=== PATIENT | male | born 1965 | race Caucasian/White ===

== ENCOUNTER 2016-07-05 01:49 | Observation (INO) | payer OTHER ==
[~2016-07-05] VITALS: Ht 185.4 cm; Wt 125.2 kg
[~2016-07-05 01:49] MED LIST: ADDERALL XR 2020 MG PO; ADDERALL XR30 MG PO; ADDERALL20 MG PO; ADULT LOW DOSE81 M1 PO; ADVAIR 250/501 DISK IH; ADVAIR 500/501 DISK IH; ADVAIR HFA120 INHAL1 IH; AMBIEN CR12.5 MG PO; AMBIEN10 MG PO; AMOX TR-K CLV1 EAC4 PO; AMPHETAMINE SAL20 MG PO; ASPIR 8181 M1 PO; ASPIRIN E.C.81 M1 PO; ASPIRIN81 M1 PO; ATORVASTATIN CA80 MG PO; AUGMENTIN875 MG PO; Adderall PO; Advair HFA 230/21 IH; Aspirin E.C. PO; BACTRIM,SEPT1 TABLET PO; CIPRO500 MG PO; CIPROFLOXACIN500 M1 PO; COUMADIN,JANTOVE4 MG PO; COUMADIN,JANTOVE6 MG PO; COUMADIN10 MG PO; COUMADIN5 MG PO; COUMADIN7.5 MG PO; CRESTOR40 MG PO; CYMBALTA PO; CYMBALTA30 MG PO; CYMBALTA60 MG PO; Ceftin PO; Coumadin,Jantoven PO; DIAZEPAM10 MG PO; DICYCLOMINE HCL20 MG PO; DILAUDID2 MG PO; DULOXETINE HCL60 MG PO; ECOTRIN81 M1 PO; EFFEXOR XR150 MG PO; ERGOCALCIF50000 UNIT PO; ESKALITH PO; Ecotrin PO; FAMOTIDINE40 MG PO; FLAGYL500 MG PO; FOLIC ACID1 MG PO; Flonase BOTH NARES; HOME OXYGEN; HUMALOG100 UNIT/1 SC; HUMALOG100 UNITS/ SC; Habitrol,Nicoderm CQ TD; INVEGA9 MG PO; KEPPRA1000 MG PO; LAMISIL250 MG PO; LANTUS 10100 UNITS/ SC; LANTUS 3 M100 UNITS/ SC; LANTUS 3 M100 UNITS1 SC; LANTUS100 UNIT/1 SQ; LEVAQUIN750 MG PO; LEVEMIR100 UNIT/2 SC; LIPITOR80 MG PO; LISINOPRIL5 MG PO; LITHIUM CARBON150 MG PO; LITHIUM CARBON450 MG PO; LOPRESSOR100 M1 PO; LOPRESSOR25 MG PO; LOPRESSOR50 MG PO; Lopressor PO; METRONIDAZOLE500 MG PO; NASONEX17 GM; NORCO 5/3251 TABLET PO; NOVOLIN 70100 UNIT/1 SQ; NOVOLIN,HU100 UNITS1 SC; NOVOLOG 10100 UNITS/ SC; NOVOLOG MI100 UNIT/M SC; NOVOLOG PE100 UNITS/ SC; OPANA ER40 MG PO; OXYCODONE HCL15 MG PO; OXYCODONE HCL30 MG PO; OXYCODONE15 MG PO; OXYCODONE30 MG PO; OXYCODONE5 MG PO; OXYCONTIN PO; OXYCONTIN15 MG PO; OXYCONTIN40 MG PO; OXYMORPHONE HCL30 MG PO; OxyCODONE PO; OxyCONTIN PO; PANTOPRAZOLE SO40 MG PO; PEPCID40 MG PO; PRADAXA150 MG PO; PREDNISONE20 MG PO; PROAIR HFA8.5 GM IH; PROTONIX40 MG PO; PROVENTIL,2.5 MG/0.5 IH; PROVENTIL,2.5 MG/3 M IH; PROVENTIL,200 INHALA IH; Pradaxa PO; Protonix PO; Proventil,Ventolin H IH; REGLAN5 MG PO; ROXICODONE15 MG PO; ROXICODONE5 MG PO; Remove Nicotine Patc TD; SERTRALINE HCL100 MG PO; SPIRIVA1 INHALATI IH; TOPROL XL100 MG PO; TOPROL XL50 MG PO; TRAMADOL HCL50 MG PO; Tylenol Regular Stre PO; VALIUM10 MG PO; VALIUM5 MG PO; VALTREX50 MG/ML PO; VENTOLIN HFA18 GM IH; VIBRAMYCIN100 M2 PO; VIBRAMYCIN100 MG PO; VITAMIN D10000 UNIT PO; VITAMIN D250000 UNIT PO; Valium PO; WARFARIN SODIU7.5 MG PO; WARFARIN SODIUM10 MG PO; WARFARIN SODIUM5 MG PO; ZESTRIL,PRINIVI10 M1 PO; ZESTRIL,PRINIVI10 MG PO; ZITHROMAX Z-PA250 MG PO; ZOFRAN ODT4 MG PO; ZOFRAN4 MG PO; ZOFRAN8 MG PO; ZOLOFT100 M1 PO; ZOLOFT100 MG PO; Zithromax PO; Zoloft PO; crestor PO; oxyCODONE PO; predniSONE PO
[2016-07-05 02:10] LABS: POINT-OF-CARE METER ID UU13113778
[2016-07-05 02:39] LABS: BASOPHIL COUNT 0.1 K/uL (0-0.1); EOSINOPHIL (%) 4.3 % (0-5); EOSINOPHIL COUNT 0.5 K/uL (0-0.3); HEMATOCRIT 40.8 % (38.0-50.0); IMMATURE GRANULOCYTE (%) 0.2 % (0.0-0.7); IMMATURE GRANULOCYTE COUNT 0.2 K/uL; LYMPHOCYTE COUNT 2.6 K/uL (1.0-2.8); MCH 32.3 PG (29.0-34.0); MCHC 35.8 G/DL (30.0-36.0); MCV 90.3 FL (86-99); MEAN PLAT.VOLUME 9.6 uM^3 (9.0-12.4); MONOCYTE (%) 8.5 % (3-12); MONOCYTE COUNT 0.9 K/uL (0-0.8); NEUTROPHIL (%) 61.4 % (45-76); NEUTROPHIL COUNT 6.4 K/uL (1.8-6.4); PLATELET COUNT 251 K/uL (156-360); RBC DIS.WIDTH-CV 13.6 % (11.8-14.6); RBC DIS.WIDTH-SD 43.4 % (39-53); RED BLOOD COUNT 4.52 M/uL (4.00-5.50); WHITE BLOOD COUNT 10.4 K/uL (4.1-10.2)
[2016-07-05 02:48] LABS: CHLORIDE 102 mEq/L (99-109); SODIUM 135 mEq/L (136-147)
[2016-07-05 02:50] LABS: GLUCOSE 314 mg/dL (70-99)
[2016-07-05 02:51] LABS: ANION GAP 10 MEQ/L (2-14)
[2016-07-05 02:52] LABS: TOTAL BILIRUBIN 0.7 mg/dL (0.0-1.0)
[2016-07-05 02:53] LABS: SERUM ETHYL ALCOHOL < 10 mg/dL
[2016-07-05 02:54] LABS: ALKALINE PHOSPHATASE 63 IU/L (3-129); GFR ESTIMATE (CALCULATED) > 59 mL/min/
[2016-07-05 02:55] LABS: UREA NITROGEN (BUN) 5 mg/dL (9-23)
[2016-07-05 02:57] LABS: LIPASE 8 U/L (1.0-51.0)
[2016-07-05 02:59] LABS: TROP-I INTERPRETATION NEGATIVE; TROPONIN-I < 0.01 ng/mL (0.0-0.30)
[2016-07-05 03:03] LABS: CK-MB 6.4 ng/mL (0.0-4.9)
[2016-07-05 03:14] LABS: PTT 27.3 (25-32)
[2016-07-05 03:22] LABS: PROTHROMBIN TIME 10.2 (9.2-11.2)
[2016-07-05 03:41] LABS: CREATINE KINASE 634 IU/L (1-294); TOTAL CK 634 IU/L (1-294)
[2016-07-05 04:13] LABS: D-DIMER ELISA 0.21 mg/L FEU (< 0.57)
[2016-07-05 06:32] LABS: AMPHETAMINE NEGATIVE (500 ng/mL); BARBITURATES NEGATIVE (200 ng/mL); BENZODIAZEPINES PRESUMPTIVE POSITIVE (150 ng/mL); COCAINE NEGATIVE (150 ng/mL); METHADONE NEGATIVE (200 ng/mL); METHAMPHETAMINE NEGATIVE (500 ng/mL); OPIATES (MORPHINE) NEGATIVE (100 ng/mL); OXYCODONE PRESUMPTIVE POSITIVE (100 ng/mL); PHENCYCLIDINE NEGATIVE (25 ng/mL); PROPOXYPHENE NEGATIVE (300 ng/mL); THC CANNABINOIDS NEGATIVE (50 ng/mL); TRICYCLIC ANTIDEPRESSANTS PRESUMPTIVE POSITIVE (300 ng/mL)
[2016-07-05 06:33] LABS: ADD MEDTOX COMMENT Y; INTERNAL CONTROLS VALID? YES
[2016-07-05 06:43] LABS: ADD MIUA? NO; BILIRUBIN NEGATIVE; BLOOD NEGATIVE; COLOR YELLOW ((YELLOW)); GLUCOSE (STRIP) 500; KETONES NEGATIVE; LEUKOCYTES NEGATIVE; NITRITE NEGATIVE; PROTEIN (STRIP) TRACE; SPECIFIC GRAVITY 1.008 (1.000-1.030); UCUL ADDED? NO; UROBILINOGEN 0.2 MG/DL (0.2-1.0)
[2016-07-05 06:54] LABS: SALICYLATE < 3.0 MG/DL (15-30)
[2016-07-05] MEDS ORDERED: METOPROLOL TAR100 MG PO (07:57)
[2016-07-05 08:00] LABS: BENZODIAZEPINES, URINE SCREEN POSITIVE (200 ng/mL)
[2016-07-05 08:04] LABS: POINT-OF-CARE METER ID UU14100415
[2016-07-05 09:26] VITALS: BP 134/81
[2016-07-05 14:07] LABS: TROP-I INTERPRETATION NEGATIVE; TROPONIN-I < 0.01 ng/mL (0.0-0.30)
[2016-07-05 16:24] VITALS: BP 148/63
[2016-07-05 16:40] LABS: POINT-OF-CARE METER ID UU13113725
[2016-07-05 18:06] LABS: TROP-I INTERPRETATION NEGATIVE; TROPONIN-I 0.01 ng/mL (0.0-0.30)
[2016-07-05 19:31] VITALS: BP 125/76
[2016-07-05 20:58] LABS: POINT-OF-CARE METER ID UU13113725
[2016-07-05 22:53] VITALS: BP 130/77
[2016-07-06 03:24] VITALS: BP 131/71
[2016-07-06 06:10] LABS: POINT-OF-CARE METER ID UU13113725
[2016-07-06 06:48] LABS: HEMATOCRIT 40.7 % (38.0-50.0); MCH 31.1 PG (29.0-34.0); MCHC 33.4 G/DL (30.0-36.0); MCV 93.1 FL (86-99); MEAN PLAT.VOLUME 10.1 uM^3 (9.0-12.4); PLATELET COUNT 255 K/uL (156-360); RBC DIS.WIDTH-SD 47.3 % (39-53); RED BLOOD COUNT 4.37 M/uL (4.00-5.50); WHITE BLOOD COUNT 12.4 K/uL (4.1-10.2)
[2016-07-06 07:17] LABS: ANION GAP 7 MEQ/L (2-14); CHLORIDE 102 MEQ/L (99-109); CREATINE KINASE 127 IU/L (1-294); GFR ESTIMATE (CALCULATED) > 59 mL/min/; POTASSIUM 4.6 MEQ/L (3.7-5.4); SAMPLE HEMOLYSIS CHECK 0; SAMPLE ICTERIC CHECK 0; SAMPLE LIPEMIA CHECK 0; SODIUM 137 MEQ/L (136-147); UREA NITROGEN (BUN) 7 mg/dL (9-23)
[2016-07-06 07:19] LABS: ALKALINE PHOSPHATASE 53 IU/L (3-129); ANION GAP 8 MEQ/L (2-14); CHLORIDE 102 MEQ/L (99-109); GFR ESTIMATE (CALCULATED) > 59 mL/min/; POTASSIUM 4.6 MEQ/L (3.7-5.4); SAMPLE HEMOLYSIS CHECK 0; SAMPLE ICTERIC CHECK 0; SAMPLE LIPEMIA CHECK 0; SODIUM 138 MEQ/L (136-147); TOTAL BILIRUBIN 0.5 MG/DL (0.0-1.0); UREA NITROGEN (BUN) 7 mg/dL (9-23)
[2016-07-06 07:28] LABS: GLUCOSE 150 mg/dL (70-99); GLUCOSE 151 mg/dL (70-99)
[2016-07-06 08:00] VITALS: BP 139/76
[2016-07-06] MEDS ORDERED: OXYCODONE HCL30 MG PO (14:47)
[2016-07-06 15:51] VITALS: BP 144/82
[2016-07-06 19:49] VITALS: BP 134/83
[2016-07-06 22:39] VITALS: BP 136/84
[2016-07-07 02:19] VITALS: BP 142/81
[2016-07-07 07:43] VITALS: BP 126/83
[2016-07-07 12:12] VITALS: BP 129/95
== END 2016-07-07 17:35 ==
LOC: EME 01:49 → EDOF 06:28 → 5EAST 06:28
PROVIDERS: Emergency Medicine; Hospitalist; Internal Medicine
DX: R41.82 Altered mental status, unspecified (principal); R45.851 Suicidal ideations; G89.29 Other chronic pain; M47.816 Spondylosis without myelopathy or radiculopathy, lumbar region; M54.5 Low back pain; F11.20 Opioid dependence, uncomplicated; F32.9 Major depressive disorder, single episode, unspecified; F41.9 Anxiety disorder, unspecified; R51 Headache; Z91.19 Patient's noncompliance with other medical treatment and regimen; E11.9 Type 2 diabetes mellitus without complications; I10 Essential (primary) hypertension; E66.01 Morbid (severe) obesity due to excess calories; I25.10 Atherosclerotic heart disease of native coronary artery without angina pectoris; Z98.61 Coronary angioplasty status; J44.9 Chronic obstructive pulmonary disease, unspecified; Z86.69 Personal history of other diseases of the nervous system and sense organs; Z86.19 Personal history of other infectious and parasitic diseases; Z87.891 Personal history of nicotine dependence; Z86.718 Personal history of other venous thrombosis and embolism; Z79.01 Long term (current) use of anticoagulants; Z91.041 Radiographic dye allergy status
CPT/HCPCS: 70450; 71010; 80048; 80053; 80178; 81003; 82140; 82550; 82553; 82948; 83690; 84484; 84999; 85025; 85027; 85379; 85610; 85730; 93005; 99281; 99285; G0378; G0480; G8987 GO CJ; G8988 GO CH; J1630; J1650; J1815; J1885; J2060; J2405; J7030

== ENCOUNTER 2016-07-07 17:31 | Inpatient (IN) | payer OTHER ==
[~2016-07-07] VITALS: Ht 185.4 cm; Wt 125.2 kg
[~2016-07-07 17:31] MED LIST changes: +METOPROLOL TAR100 MG PO
[2016-07-07 17:41] VITALS: BP 133/87
[2016-07-07 18:27] VITALS: BP 133/87
[2016-07-07 19:57] LABS: INTER. NORMALIZED RATIO 1.1; PROTHROMBIN TIME 11.6 (9.2-11.2)
[2016-07-07 21:44] LABS: POINT-OF-CARE METER ID UU13113830; POINT-OF-CARE USER ID ENVTLS63
[2016-07-08 06:31] LABS: POINT-OF-CARE METER ID UU13113830; POINT-OF-CARE USER ID BHSMEW
[2016-07-08 12:41] LABS: POINT-OF-CARE METER ID UU13113830
[2016-07-08 16:16] VITALS: BP 120/69
[2016-07-08 17:46] LABS: INTER. NORMALIZED RATIO 1.4; PROTHROMBIN TIME 14.1 (9.2-11.2)
[2016-07-08 21:14] LABS: POINT-OF-CARE METER ID UU13113830
[2016-07-09 06:43] LABS: POINT-OF-CARE METER ID UU13113830
[2016-07-09 07:52] VITALS: BP 103/62
[2016-07-09 09:24] LABS: INTER. NORMALIZED RATIO 1.5; PROTHROMBIN TIME 15.7 (9.2-11.2)
[2016-07-09] MEDS ORDERED: VENLAFAXINE HCL75 M3 PO (10:50)
[2016-07-09 12:13] LABS: POINT-OF-CARE METER ID UU13113830
[2016-07-09] MEDS ORDERED: OXYCODONE HCL5 MG PO (15:10)
[2016-07-09] MEDS ORDERED: OXYCONTIN30 MG PO (15:10)
== END 2016-07-09 15:50 | disposition home or self-care (01) | DRG 881 ==
LOC: 1WEST 17:31
PROVIDERS: Nurse Practitioner Family; Psychiatry & Neurology Psychiatry
DX: F32.9 Major depressive disorder, single episode, unspecified (principal); G89.29 Other chronic pain; F60.9 Personality disorder, unspecified; E11.9 Type 2 diabetes mellitus without complications; I10 Essential (primary) hypertension; E78.5 Hyperlipidemia, unspecified; G40.909 Epilepsy, unspecified, not intractable, without status epilepticus; J44.9 Chronic obstructive pulmonary disease, unspecified; Z91.041 Radiographic dye allergy status; Z91.013 Allergy to seafood; Z88.6 Allergy status to analgesic agent
CPT/HCPCS: 80178; 82948; 85610; 97150 GO; 97165 GO; J1815; Q0177

== ENCOUNTER 2016-08-30 07:59 | Observation (INO) | payer OTHER ==
[~2016-08-30] VITALS: Ht 185.4 cm; Wt 123.3 kg
[~2016-08-30 07:59] MED LIST changes: +OXYCODONE HCL5 MG PO; +OXYCONTIN30 MG PO; +VENLAFAXINE HCL75 M3 PO
[2016-08-30 09:04] LABS: BASOPHIL COUNT 0.1 K/uL (0-0.1); EOSINOPHIL (%) 1.6 % (0-5); EOSINOPHIL COUNT 0.2 K/uL (0-0.3); IMMATURE GRANULOCYTE (%) 0.3 % (0.0-0.7); IMMATURE GRANULOCYTE COUNT 0.1 K/uL; INSTRUMENT ABS NEUTROPHIL CT 9.9 K/uL; LYMPHOCYTE COUNT 3.4 K/uL (1.0-2.8); MCH 31.9 PG (29.0-34.0); MCHC 35.1 G/DL (30.0-36.0); MCV 90.9 FL (86-99); MEAN PLAT.VOLUME 9.7 uM^3 (9.0-12.4); MONOCYTE (%) 6.4 % (3-12); MONOCYTE COUNT 0.9 K/uL (0-0.8); NEUTROPHIL (%) 67.9 % (45-76); NEUTROPHIL COUNT 9.9 K/uL (1.8-6.4); PLATELET COUNT 289 K/uL (156-360); RED BLOOD COUNT 4.95 M/uL (4.00-5.50); WHITE BLOOD COUNT 14.6 K/uL (4.1-10.2)
[2016-08-30 09:13] LABS: PROTHROMBIN TIME 9.8 (9.2-11.2); PTT 26.4 (25-32)
[2016-08-30 09:15] LABS: CHLORIDE 94 mEq/L (99-109); POTASSIUM 3.8 mEq/L (3.7-5.4); SODIUM 131 mEq/L (136-147)
[2016-08-30 09:16] LABS: MAGNESIUM 1.7 mg/dL (1.3-2.7)
[2016-08-30 09:19] LABS: ANION GAP 17 MEQ/L (2-14)
[2016-08-30 09:21] LABS: GFR ESTIMATE (CALCULATED) > 59 mL/min/
[2016-08-30 09:22] LABS: UREA NITROGEN (BUN) 4 mg/dL (9-23)
[2016-08-30 09:26] LABS: TROP-I INTERPRETATION NEGATIVE; TROPONIN-I < 0.01 ng/mL (0.0-0.30)
[2016-08-30 09:30] LABS: GLUCOSE 696 mg/dL (70-99)
[2016-08-30 11:25] LABS: CARBON DIOXIDE (BICARBONATE) 28.7 MEQ/L (20-31)
[2016-08-30 12:02] LABS: POINT-OF-CARE METER ID UU14100415
[2016-08-30 12:29] LABS: ANION GAP 12 MEQ/L (2-14); CHLORIDE 100 MEQ/L (99-109); POTASSIUM 3.2 MEQ/L (3.7-5.4); SAMPLE HEMOLYSIS CHECK 0; SAMPLE ICTERIC CHECK 0; SAMPLE LIPEMIA CHECK 0; SODIUM 136 MEQ/L (136-147)
[2016-08-30 12:34] LABS: GFR ESTIMATE (CALCULATED) > 59 mL/min/; UREA NITROGEN (BUN) 4 mg/dL (9-23)
[2016-08-30 12:37] LABS: GLUCOSE 343 mg/dL (70-99)
[2016-08-30] MEDS ORDERED: FENTANYL1 EAC2 TD (12:54)
[2016-08-30] MEDS ORDERED: OXYMORPHONE HCL30 MG PO (12:54)
[2016-08-30] MEDS ORDERED: LANTUS 3 M100 UNITS1 SC (13:19)
[2016-08-30] MEDS ORDERED: VALIUM10 MG PO (13:26)
[2016-08-30] MEDS ORDERED: SEROQUEL200 MG PO (13:26)
[2016-08-30] MEDS ORDERED: ROXICODONE15 MG PO (13:27)
[2016-08-30] MEDS ORDERED: NICODERM CQ1 EAC2 TD (13:28)
[2016-08-30 14:19] LABS: Estimated Average Glucose 272 mg/dL (70-123)
[2016-08-30 14:30] LABS: HEMOGLOBIN A1c (GLYCOHEMOGLOB) 11.1 % HGB (Below 5.7)
[2016-08-30 15:16] VITALS: BP 131/77
[2016-08-30 15:23] LABS: TROP-I INTERPRETATION NEGATIVE; TROPONIN-I 0.02 ng/mL (0.0-0.30)
[2016-08-30 20:00] VITALS: BP 152/90
[2016-08-30 20:54] LABS: TROP-I INTERPRETATION NEGATIVE; TROPONIN-I 0.01 ng/mL (0.0-0.30)
[2016-08-30 21:54] LABS: POINT-OF-CARE METER ID UU14162513
[2016-08-30 23:46] VITALS: BP 110/59
[2016-08-31 04:29] VITALS: BP 98/56
[2016-08-31 07:36] LABS: PROTHROMBIN TIME 10.4 (9.2-11.2)
[2016-08-31 07:38] VITALS: BP 100/64
[2016-08-31 08:04] LABS: POINT-OF-CARE METER ID UU14162513
[2016-08-31 08:19] LABS: ANION GAP 5 MEQ/L (2-14); CHLORIDE 105 MEQ/L (99-109); GFR ESTIMATE (CALCULATED) > 59 mL/min/; GLUCOSE 198 mg/dL (70-99); SAMPLE HEMOLYSIS CHECK 0; SAMPLE ICTERIC CHECK 0; SAMPLE LIPEMIA CHECK 0; SODIUM 140 MEQ/L (136-147); UREA NITROGEN (BUN) 8 mg/dL (9-23)
[2016-08-31 08:23] LABS: POTASSIUM 4.5 MEQ/L (3.7-5.4)
[2016-08-31 08:26] LABS: BASOPHIL COUNT 0.1 K/uL (0-0.1); EOSINOPHIL (%) 2.6 % (0-5); EOSINOPHIL COUNT 0.3 K/uL (0-0.3); IMMATURE GRANULOCYTE (%) 0.3 % (0.0-0.7); INSTRUMENT ABS NEUTROPHIL CT 5.5 K/uL; LYMPHOCYTE COUNT 3.4 K/uL (1.0-2.8); MCH 31.5 PG (29.0-34.0); MCHC 34.1 G/DL (30.0-36.0); MCV 92.1 FL (86-99); MEAN PLAT.VOLUME 9.9 uM^3 (9.0-12.4); MONOCYTE (%) 7.1 % (3-12); MONOCYTE COUNT 0.7 K/uL (0-0.8); NEUTROPHIL COUNT 5.5 K/uL (1.8-6.4); PLATELET COUNT 243 K/uL (156-360); RBC DIS.WIDTH-CV 13.4 % (11.8-14.6); RBC DIS.WIDTH-SD 45.1 % (39-53); RED BLOOD COUNT 4.45 M/uL (4.00-5.50)
[2016-08-31] MEDS ORDERED: LOVENOX120 MG/0.8 SC (10:59)
[2016-08-31] MEDS ORDERED: COUMADIN5 MG PO (10:59)
[2016-08-31 12:02] VITALS: BP 103/74
[2016-08-31 12:43] LABS: POINT-OF-CARE METER ID UU14162513
[2016-08-31] MEDS ORDERED: ELIQUIS5 MG PO (13:43)
== END 2016-08-31 16:07 | disposition home or self-care (01) ==
LOC: EME 07:59 → EDOF 12:41 → 5WEST 12:41 → EDOF 12:41 → 5WEST 14:37
PROVIDERS: Emergency Medicine; Hospitalist; Internal Medicine; Nurse Practitioner Family
DX: I26.99 Other pulmonary embolism without acute cor pulmonale (principal); E87.6 Hypokalemia; Z91.19 Patient's noncompliance with other medical treatment and regimen; E11.65 Type 2 diabetes mellitus with hyperglycemia; J44.9 Chronic obstructive pulmonary disease, unspecified; I48.0 Paroxysmal atrial fibrillation; I25.10 Atherosclerotic heart disease of native coronary artery without angina pectoris; I25.2 Old myocardial infarction; Z95.5 Presence of coronary angioplasty implant and graft; F31.9 Bipolar disorder, unspecified; G89.29 Other chronic pain; M54.9 Dorsalgia, unspecified; E66.01 Morbid (severe) obesity due to excess calories; I10 Essential (primary) hypertension; G47.33 Obstructive sleep apnea (adult) (pediatric); F17.210 Nicotine dependence, cigarettes, uncomplicated; E78.5 Hyperlipidemia, unspecified
CPT/HCPCS: 71010; 78582; 80048; 80048 91; 82010; 82803; 82948; 83036; 83735; 84484; 85025; 85610; 85730; 93005; 94640 76; 99202; 99281; 99285; A9539; A9540; G0378; J1650; J1815; J2250; J2405; J7030; J7050

== ENCOUNTER 2016-09-02 05:41 | Emergency (ER) | payer OTHER ==
[~2016-09-02] VITALS: Ht 185.4 cm; Wt 120.9 kg
[~2016-09-02 05:41] MED LIST changes: +ELIQUIS5 MG PO; +FENTANYL1 EAC2 TD; +LOVENOX120 MG/0.8 SC; +NICODERM CQ1 EAC2 TD; +SEROQUEL200 MG PO
[2016-09-02 06:39] LABS: BASOPHIL COUNT 0.1 K/uL (0-0.1); EOSINOPHIL (%) 0.7 % (0-5); EOSINOPHIL COUNT 0.1 K/uL (0-0.3); HEMATOCRIT 43.9 % (38.0-50.0); IMMATURE GRANULOCYTE (%) 0.3 % (0.0-0.7); IMMATURE GRANULOCYTE COUNT 0.1 K/uL; INSTRUMENT ABS NEUTROPHIL CT 12.1 K/uL; LYMPHOCYTE COUNT 2.6 K/uL (1.0-2.8); MCH 31.8 PG (29.0-34.0); MCHC 35.3 G/DL (30.0-36.0); MEAN PLAT.VOLUME 9.4 uM^3 (9.0-12.4); NEUTROPHIL (%) 76.2 % (45-76); NEUTROPHIL COUNT 12.1 K/uL (1.8-6.4); PLATELET COUNT 272 K/uL (156-360); RBC DIS.WIDTH-CV 13.1 % (11.8-14.6); RBC DIS.WIDTH-SD 42.7 % (39-53); RED BLOOD COUNT 4.88 M/uL (4.00-5.50); WHITE BLOOD COUNT 15.9 K/uL (4.1-10.2)
[2016-09-02 06:48] LABS: INTER. NORMALIZED RATIO 1.4; PROTHROMBIN TIME 14.7 (9.2-11.2); PTT 29.6 (25-32)
[2016-09-02 07:18] LABS: ANION GAP 11 MEQ/L (2-14); CHLORIDE 101 MEQ/L (99-109); SAMPLE HEMOLYSIS CHECK 0; SAMPLE ICTERIC CHECK 0; SAMPLE LIPEMIA CHECK 0; SODIUM 134 MEQ/L (136-147)
[2016-09-02 07:21] LABS: POTASSIUM 3.5 MEQ/L (3.7-5.4)
[2016-09-02 07:23] LABS: GFR ESTIMATE (CALCULATED) > 59 mL/min/; UREA NITROGEN (BUN) 6 mg/dL (9-23)
[2016-09-02 07:24] LABS: GLUCOSE 364 mg/dL (70-99)
[2016-09-02 07:27] LABS: TROP-I INTERPRETATION NEGATIVE; TROPONIN-I < 0.01 ng/mL (0.0-0.30)
[2016-09-02 09:33] LABS: POINT-OF-CARE METER ID UU14100415
[2016-09-02 10:56] LABS: TROP-I INTERPRETATION NEGATIVE; TROPONIN-I < 0.01 ng/mL (0.0-0.30)
[2016-09-02] MEDS ORDERED: AUGMENTIN875 MG PO (11:34)
[2016-09-02 11:44] VITALS: BP 152/95
== END 2016-09-02 11:54 | disposition home or self-care (01) ==
LOC: EME 05:41
PROVIDERS: Emergency Medicine
DX: R07.89 Other chest pain (principal); J40 Bronchitis, not specified as acute or chronic; Z72.0 Tobacco use; J45.909 Unspecified asthma, uncomplicated; J44.9 Chronic obstructive pulmonary disease, unspecified; I10 Essential (primary) hypertension; E11.9 Type 2 diabetes mellitus without complications; I25.2 Old myocardial infarction; Z79.4 Long term (current) use of insulin; E78.5 Hyperlipidemia, unspecified; K21.9 Gastro-esophageal reflux disease without esophagitis; Z86.711 Personal history of pulmonary embolism; Z95.5 Presence of coronary angioplasty implant and graft; Z91.013 Allergy to seafood; Z91.041 Radiographic dye allergy status; Z88.5 Allergy status to narcotic agent
CPT/HCPCS: 71010; 71275; 80048; 82948; 84484; 85025; 85610; 85730; 93005; 99281; 99285; J1200; J2405; J2930; J3010; J7030

== ENCOUNTER 2016-11-13 02:49 | Observation (INO) | payer OTHER ==
[~2016-11-13] VITALS: Ht 185.4 cm; Wt 123.2 kg
[2016-11-13 04:03] LABS: HEMATOCRIT 44.5 % (38.0-50.0); MCHC 35.3 G/DL (30.0-36.0); MCV 90.8 FL (86-99); MEAN PLAT.VOLUME 9.7 uM^3 (9.0-12.4); PLATELET COUNT 278 K/uL (156-360); RBC DIS.WIDTH-CV 12.4 % (11.8-14.6); RBC DIS.WIDTH-SD 40.7 % (39-53); WHITE BLOOD COUNT 15.7 K/uL (4.1-10.2)
[2016-11-13 04:28] LABS: CHLORIDE 98 mEq/L (99-109); POTASSIUM 3.9 mEq/L (3.7-5.4); SODIUM 134 mEq/L (136-147)
[2016-11-13 04:31] LABS: ANION GAP 11 MEQ/L (2-14)
[2016-11-13 04:33] LABS: GFR ESTIMATE (CALCULATED) > 59 mL/min/
[2016-11-13 04:34] LABS: UREA NITROGEN (BUN) 9 mg/dL (9-23)
[2016-11-13 04:37] LABS: TROP-I INTERPRETATION NEGATIVE; TROPONIN-I < 0.01 ng/mL (0.0-0.30)
[2016-11-13 04:56] LABS: GLUCOSE 475 mg/dL (70-99)
[2016-11-13 07:23] LABS: POINT-OF-CARE METER ID UU13113702
[2016-11-13] MEDS ORDERED: COUMADIN7.5 MG PO (08:29)
[2016-11-13] MEDS ORDERED: COUMADIN10 MG PO (08:29)
[2016-11-13 08:38] VITALS: BP 146/96
[2016-11-13 11:39] VITALS: BP 148/72
[2016-11-13 12:11] LABS: POINT-OF-CARE METER ID UU14162513
[2016-11-13] MEDS ORDERED: LANTUS 3 M100 UNITS1 SC (14:46)
[2016-11-13] MEDS ORDERED: COUMADIN5 MG PO ×2 (14:56→14:57)
[2016-11-13 15:41] VITALS: BP 156/108
[2016-11-13 17:26] LABS: POINT-OF-CARE METER ID UU13113700
[2016-11-13 18:41] LABS: TROP-I INTERPRETATION NEGATIVE; TROPONIN-I < 0.01 ng/mL (0.0-0.30)
[2016-11-13 20:48] LABS: POINT-OF-CARE METER ID UU13113700
[2016-11-13 21:17] VITALS: BP 113/62
[2016-11-14 01:28] LABS: TROP-I INTERPRETATION NEGATIVE; TROPONIN-I < 0.01 ng/mL (0.0-0.30)
[2016-11-14 03:43] VITALS: BP 95/55
[2016-11-14 05:53] LABS: HEMATOCRIT 43.5 % (38.0-50.0); MCH 32.3 PG (29.0-34.0); MCHC 34.7 G/DL (30.0-36.0); MCV 93.1 FL (86-99); MEAN PLAT.VOLUME 9.7 uM^3 (9.0-12.4); PLATELET COUNT 253 K/uL (156-360); RBC DIS.WIDTH-CV 12.9 % (11.8-14.6); RED BLOOD COUNT 4.67 M/uL (4.00-5.50); WHITE BLOOD COUNT 17.4 K/uL (4.1-10.2)
[2016-11-14 06:02] LABS: PROTHROMBIN TIME 10.4 (9.2-11.2)
[2016-11-14 06:06] LABS: TROP-I INTERPRETATION NEGATIVE; TROPONIN-I < 0.01 ng/mL (0.0-0.30)
[2016-11-14 06:20] LABS: ALKALINE PHOSPHATASE 59 IU/L (3-129); ANION GAP 6 MEQ/L (2-14); CHLORIDE 106 MEQ/L (99-109); GFR ESTIMATE (CALCULATED) > 59 mL/min/; POTASSIUM 4.4 MEQ/L (3.7-5.4); SAMPLE HEMOLYSIS CHECK 0; SAMPLE ICTERIC CHECK 0; SAMPLE LIPEMIA CHECK 0; SODIUM 139 MEQ/L (136-147); TOTAL BILIRUBIN 0.4 MG/DL (0.0-1.0); UREA NITROGEN (BUN) 18 mg/dL (9-23)
[2016-11-14 06:25] LABS: GLUCOSE 185 mg/dL (70-99)
[2016-11-14 07:44] VITALS: BP 132/75
[2016-11-14] MEDS ORDERED: LOVENOX120 MG/0.8 SC (07:55)
== END 2016-11-14 09:15 | disposition home or self-care (01) ==
LOC: EME 02:49 → EDOF 07:54 → 5WEST 08:33
PROVIDERS: Emergency Medicine; Internal Medicine
DX: R07.9 Chest pain, unspecified (principal); I25.10 Atherosclerotic heart disease of native coronary artery without angina pectoris; Z86.711 Personal history of pulmonary embolism; Z79.01 Long term (current) use of anticoagulants; E66.01 Morbid (severe) obesity due to excess calories; J44.9 Chronic obstructive pulmonary disease, unspecified; E78.5 Hyperlipidemia, unspecified; I10 Essential (primary) hypertension; F31.9 Bipolar disorder, unspecified; G47.33 Obstructive sleep apnea (adult) (pediatric); I48.0 Paroxysmal atrial fibrillation; Z91.14 Patient's other noncompliance with medication regimen; Z95.5 Presence of coronary angioplasty implant and graft; Z79.4 Long term (current) use of insulin; B37.0 Candidal stomatitis; E11.65 Type 2 diabetes mellitus with hyperglycemia; G89.4 Chronic pain syndrome; Z79.891 Long term (current) use of opiate analgesic; K21.9 Gastro-esophageal reflux disease without esophagitis; F17.210 Nicotine dependence, cigarettes, uncomplicated; Z86.718 Personal history of other venous thrombosis and embolism; Z95.828 Presence of other vascular implants and grafts; R06.02 Shortness of breath; R11.0 Nausea; R10.33 Periumbilical pain
CPT/HCPCS: 71020; 74176; 80048; 80053; 81003; 82948; 84484; 85027; 85610; 93005; 94640; 99202; 99281; 99285; G0378; J0595; J1650; J1815; J2060; J2405; J3010; J7040

== ENCOUNTER 2016-11-17 04:04 | Emergency (ER) | payer OTHER ==
[~2016-11-17] VITALS: Ht 188 cm; Wt 121.1 kg
[2016-11-17 04:34] LABS: HEMATOCRIT 45.1 % (38.0-50.0); MCH 31.8 PG (29.0-34.0); MCHC 35.5 G/DL (30.0-36.0); MCV 89.7 FL (86-99); MEAN PLAT.VOLUME 9.5 uM^3 (9.0-12.4); PLATELET COUNT 289 K/uL (156-360); RBC DIS.WIDTH-CV 12.4 % (11.8-14.6); RBC DIS.WIDTH-SD 40.6 % (39-53); RED BLOOD COUNT 5.03 M/uL (4.00-5.50); WHITE BLOOD COUNT 15.4 K/uL (4.1-10.2)
[2016-11-17 04:41] LABS: CHLORIDE 98 mEq/L (99-109); POTASSIUM 3.6 mEq/L (3.7-5.4)
[2016-11-17 04:44] LABS: ANION GAP 13 MEQ/L (2-14)
[2016-11-17 04:45] LABS: TOTAL BILIRUBIN 0.4 mg/dL (0.0-1.0)
[2016-11-17 04:46] LABS: ALKALINE PHOSPHATASE 73 IU/L (3-129)
[2016-11-17 04:47] LABS: GFR ESTIMATE (CALCULATED) > 59 mL/min/
[2016-11-17 04:48] LABS: UREA NITROGEN (BUN) 8 mg/dL (9-23)
[2016-11-17 04:50] LABS: LIPASE 21 U/L (1.0-51.0)
[2016-11-17 04:54] LABS: SODIUM 132 mEq/L (136-147)
[2016-11-17 05:02] LABS: GLUCOSE 422 mg/dL (70-99)
[2016-11-17 05:35] LABS: CARBON DIOXIDE (BICARBONATE) 26.8 MEQ/L (20-31)
[2016-11-17 07:11] LABS: POINT-OF-CARE METER ID UU13113702
[2016-11-17] MEDS ORDERED: COLACE100 MG PO (07:17)
[2016-11-17 09:27] VITALS: BP 144/92
== END 2016-11-17 09:27 | disposition home or self-care (01) ==
LOC: EME 04:04
PROVIDERS: Emergency Medicine
DX: K59.00 Constipation, unspecified (principal); R11.2 Nausea with vomiting, unspecified; I10 Essential (primary) hypertension; E78.5 Hyperlipidemia, unspecified; J45.909 Unspecified asthma, uncomplicated; E11.9 Type 2 diabetes mellitus without complications; Z79.4 Long term (current) use of insulin; Z90.49 Acquired absence of other specified parts of digestive tract; Z86.711 Personal history of pulmonary embolism; Z79.01 Long term (current) use of anticoagulants; Z72.0 Tobacco use
CPT/HCPCS: 74000; 80053; 81003; 82803; 82948; 83690; 85027; 93005; 99281; 99285; J2060; J2765; J3010; J7030

== ENCOUNTER 2016-12-03 22:16 | Emergency (ER) | payer OTHER ==
[~2016-12-03] VITALS: Ht 185.4 cm; Wt 129.7 kg
[~2016-12-03 22:16] MED LIST changes: +COLACE100 MG PO
[2016-12-03 22:49] LABS: HEMATOCRIT 44.8 % (38.0-50.0); MCH 32.3 PG (29.0-34.0); MCHC 36.4 G/DL (30.0-36.0); MCV 88.9 FL (86-99); MEAN PLAT.VOLUME 9.8 uM^3 (9.0-12.4); PLATELET COUNT 291 K/uL (156-360); RBC DIS.WIDTH-CV 12.5 % (11.8-14.6); RBC DIS.WIDTH-SD 40.8 % (39-53); RED BLOOD COUNT 5.04 M/uL (4.00-5.50)
[2016-12-03 22:58] LABS: INTER. NORMALIZED RATIO 0.9; PROTHROMBIN TIME 9.6 (9.2-11.2); PTT 26.4 (25-32)
[2016-12-03 23:00] LABS: CHLORIDE 97 mEq/L (99-109); POTASSIUM 3.5 mEq/L (3.7-5.4); SODIUM 132 mEq/L (136-147)
[2016-12-03 23:03] LABS: ANION GAP 12 MEQ/L (2-14)
[2016-12-03 23:04] LABS: TOTAL BILIRUBIN 0.3 mg/dL (0.0-1.0)
[2016-12-03 23:05] LABS: ALKALINE PHOSPHATASE 81 IU/L (3-129)
[2016-12-03 23:06] LABS: GFR ESTIMATE (CALCULATED) > 59 mL/min/
[2016-12-03 23:07] LABS: GLUCOSE 430 mg/dL (70-99); UREA NITROGEN (BUN) 8 mg/dL (9-23)
[2016-12-03 23:09] LABS: LIPASE 18 U/L (1.0-51.0); TROP-I INTERPRETATION NEGATIVE; TROPONIN-I < 0.01 ng/mL (0.0-0.30)
[2016-12-03 23:19] LABS: ADD MIUA? YES; BILIRUBIN NEGATIVE; BLOOD NEGATIVE; COLOR YELLOW ((YELLOW)); GLUCOSE (STRIP) >=500; KETONES 5; LEUKOCYTES NEGATIVE; NITRITE NEGATIVE; PROTEIN (STRIP) 100; SPECIFIC GRAVITY 1.025 (1.000-1.030); UROBILINOGEN 0.2 MG/DL (0.2-1.0)
[2016-12-03 23:22] LABS: BACTERIA NONE SEEN /HPF; EPITHELIAL CELLS NONE SEEN /HPF; MUCUS NONE SEEN /LPF; RED BLOOD CELLS 0-5 /HPF (0-5); UCUL ADDED? NO; WHITE BLOOD CELLS 0-5 /HPF (0-5)
[2016-12-04 01:04] LABS: TROP-I INTERPRETATION NEGATIVE; TROPONIN-I < 0.01 ng/mL (0.0-0.30)
[2016-12-04 01:40] LABS: POINT-OF-CARE METER ID UU13113702
[2016-12-04 01:49] VITALS: BP 136/76
== END 2016-12-04 01:55 | disposition home or self-care (01) ==
LOC: EME → EDBD 22:16 → EME 22:16
PROVIDERS: Emergency Medicine
DX: R07.89 Other chest pain (principal); E11.65 Type 2 diabetes mellitus with hyperglycemia; I10 Essential (primary) hypertension; R79.1 Abnormal coagulation profile; Z91.14 Patient's other noncompliance with medication regimen; I25.2 Old myocardial infarction; K21.9 Gastro-esophageal reflux disease without esophagitis; J44.9 Chronic obstructive pulmonary disease, unspecified; E78.5 Hyperlipidemia, unspecified; Z79.4 Long term (current) use of insulin; F17.200 Nicotine dependence, unspecified, uncomplicated
CPT/HCPCS: 71010; 80053; 81003; 82948; 83690; 84484; 85027; 85610; 85730; 93005; 99281; 99285; J0780; J1200; J3010; J7030

== ENCOUNTER 2016-12-09 20:39 | Emergency (ER) | payer OTHER ==
[~2016-12-09] VITALS: Ht 185.4 cm; Wt 123.4 kg
[2016-12-09 22:12] LABS: CHLORIDE 98 mEq/L (99-109); POTASSIUM 3.6 mEq/L (3.7-5.4); SODIUM 133 mEq/L (136-147)
[2016-12-09 22:14] LABS: GLUCOSE 494 mg/dL (70-99)
[2016-12-09 22:15] LABS: ANION GAP 13 MEQ/L (2-14)
[2016-12-09 22:18] LABS: GFR ESTIMATE (CALCULATED) > 59 mL/min/
[2016-12-09 22:19] LABS: HEMATOCRIT 44.7 % (38.0-50.0); MCH 32.1 PG (29.0-34.0); MCHC 36.5 G/DL (30.0-36.0); MCV 88.2 FL (86-99); MEAN PLAT.VOLUME 10.2 uM^3 (9.0-12.4); PLATELET COUNT 294 K/uL (156-360); RBC DIS.WIDTH-CV 12.5 % (11.8-14.6); RBC DIS.WIDTH-SD 40.4 % (39-53); RED BLOOD COUNT 5.07 M/uL (4.00-5.50); UREA NITROGEN (BUN) 8 mg/dL (9-23); WHITE BLOOD COUNT 16.4 K/uL (4.1-10.2)
[2016-12-09 22:24] LABS: TROP-I INTERPRETATION NEGATIVE; TROPONIN-I < 0.01 ng/mL (0.0-0.30)
[2016-12-10 00:26] LABS: ALKALINE PHOSPHATASE 86 IU/L (3-129); TOTAL BILIRUBIN 0.4 mg/dL (0.0-1.0)
[2016-12-10 00:29] LABS: DIRECT BILIRUBIN 0.1 mg/dL (0.0-0.3)
[2016-12-10 00:30] LABS: CREATINE KINASE 42 IU/L (1-294); LIPASE 14 U/L (1.0-51.0)
[2016-12-10 02:52] LABS: POINT-OF-CARE METER ID UU14100415
[2016-12-10 03:06] LABS: TROP-I INTERPRETATION NEGATIVE; TROPONIN-I < 0.01 ng/mL (0.0-0.30)
[2016-12-10] MEDS ORDERED: BACTRIM,SEPT1 TABLET PO (03:37)
[2016-12-10 03:56] VITALS: BP 134/76
== END 2016-12-10 03:58 | disposition home or self-care (01) ==
LOC: EME 20:39
PROVIDERS: Emergency Medicine
PROC: 0H9MXZZ Drainage of Right Foot Skin, External Approach (ICD-10-PCS; principal; 2016-12-10)
DX: R07.89 Other chest pain (principal); E11.65 Type 2 diabetes mellitus with hyperglycemia; I10 Essential (primary) hypertension; F41.9 Anxiety disorder, unspecified; M79.671 Pain in right foot; J44.9 Chronic obstructive pulmonary disease, unspecified; I25.2 Old myocardial infarction; Z79.4 Long term (current) use of insulin; E78.5 Hyperlipidemia, unspecified; F32.9 Major depressive disorder, single episode, unspecified; K21.9 Gastro-esophageal reflux disease without esophagitis; Z95.5 Presence of coronary angioplasty implant and graft; Z79.01 Long term (current) use of anticoagulants; Z91.013 Allergy to seafood; F17.200 Nicotine dependence, unspecified, uncomplicated; Z91.041 Radiographic dye allergy status; Z88.5 Allergy status to narcotic agent; Z90.49 Acquired absence of other specified parts of digestive tract
CPT/HCPCS: 71020; 80048; 80076; 82550; 82948; 83690; 84484; 85027; 93005; 99281; 99285; J0780; J2060; J3010; J7030

== ENCOUNTER 2016-12-13 02:05 | Emergency (ER) | payer OTHER ==
[~2016-12-13] VITALS: Ht 185.4 cm; Wt 123.0 kg
[2016-12-13 05:32] VITALS: BP 153/97
== END 2016-12-13 05:33 | disposition home or self-care (01) ==
LOC: EXP 02:05 → EME 02:05 → EXP 05:33
PROC: 0H97XZZ Drainage of Abdomen Skin, External Approach (ICD-10-PCS; principal; 2016-12-13)
DX: L02.214 Cutaneous abscess of groin (principal); J44.9 Chronic obstructive pulmonary disease, unspecified; I10 Essential (primary) hypertension; E11.9 Type 2 diabetes mellitus without complications; Z95.5 Presence of coronary angioplasty implant and graft; Z79.4 Long term (current) use of insulin
CPT/HCPCS: 87070; 87075; 87076; 87077; 87186; 87205; 99281; 99284; J3010

== ENCOUNTER 2016-12-14 04:04 | Emergency (ER) | payer OTHER ==
[~2016-12-14] VITALS: Ht 185.4 cm; Wt 123.8 kg
[2016-12-14 05:29] LABS: HEMATOCRIT 43.5 % (38.0-50.0); MCH 31.8 PG (29.0-34.0); MCHC 35.9 G/DL (30.0-36.0); MCV 88.8 FL (86-99); MEAN PLAT.VOLUME 9.9 uM^3 (9.0-12.4); PLATELET COUNT 275 K/uL (156-360); RBC DIS.WIDTH-CV 12.3 % (11.8-14.6); RBC DIS.WIDTH-SD 40.1 % (39-53); WHITE BLOOD COUNT 13.8 K/uL (4.1-10.2)
[2016-12-14 05:32] LABS: CHLORIDE 97 mEq/L (99-109); POTASSIUM 3.5 mEq/L (3.7-5.4); SODIUM 133 mEq/L (136-147)
[2016-12-14 05:35] LABS: ANION GAP 13 MEQ/L (2-14); GLUCOSE 488 mg/dL (70-99)
[2016-12-14 05:37] LABS: GFR ESTIMATE (CALCULATED) > 59 mL/min/
[2016-12-14 05:38] LABS: UREA NITROGEN (BUN) 7 mg/dL (9-23)
[2016-12-14 05:43] LABS: TROP-I INTERPRETATION NEGATIVE; TROPONIN-I < 0.01 ng/mL (0.0-0.30)
[2016-12-14 05:55] VITALS: BP 170/104
== END 2016-12-14 05:55 | disposition home or self-care (01) ==
LOC: EME 04:04
DX: R00.2 Palpitations (principal); E11.65 Type 2 diabetes mellitus with hyperglycemia; Z48.817 Encounter for surgical aftercare following surgery on the skin and subcutaneous tissue; E78.5 Hyperlipidemia, unspecified; I10 Essential (primary) hypertension; J44.9 Chronic obstructive pulmonary disease, unspecified; I25.2 Old myocardial infarction; Z79.4 Long term (current) use of insulin; Z79.01 Long term (current) use of anticoagulants; F32.9 Major depressive disorder, single episode, unspecified; K21.9 Gastro-esophageal reflux disease without esophagitis; Z91.013 Allergy to seafood; Z91.041 Radiographic dye allergy status; Z88.5 Allergy status to narcotic agent; F17.200 Nicotine dependence, unspecified, uncomplicated; Z90.49 Acquired absence of other specified parts of digestive tract
CPT/HCPCS: 80048; 84484; 85027; 93005; 99281; 99284

== ENCOUNTER 2016-12-23 04:16 | Emergency (ER) | payer OTHER ==
[~2016-12-23] VITALS: Ht 185.4 cm; Wt 121.2 kg
[2016-12-23 05:10] LABS: CHLORIDE 97 mEq/L (99-109); POTASSIUM 3.9 mEq/L (3.7-5.4); SODIUM 133 mEq/L (136-147)
[2016-12-23 05:12] LABS: GLUCOSE 427 mg/dL (70-99)
[2016-12-23 05:13] LABS: ANION GAP 12 MEQ/L (2-14)
[2016-12-23 05:15] LABS: GFR ESTIMATE (CALCULATED) > 59 mL/min/
[2016-12-23 05:16] LABS: UREA NITROGEN (BUN) 12 mg/dL (9-23)
[2016-12-23 05:22] LABS: HEMATOCRIT 46.8 % (38.0-50.0); MCH 31.9 PG (29.0-34.0); MCHC 35.9 G/DL (30.0-36.0); MCV 88.8 FL (86-99); MEAN PLAT.VOLUME 9.9 uM^3 (9.0-12.4); PLATELET COUNT 327 K/uL (156-360); RBC DIS.WIDTH-CV 12.4 % (11.8-14.6); RBC DIS.WIDTH-SD 40.5 % (39-53); RED BLOOD COUNT 5.27 M/uL (4.00-5.50); TROP-I INTERPRETATION NEGATIVE; TROPONIN-I < 0.01 ng/mL (0.0-0.30)
[2016-12-23] MEDS ORDERED: DONNATAL1 TABLET PO (08:01)
[2016-12-23 08:26] VITALS: BP 139/65
== END 2016-12-23 08:35 | disposition home or self-care (01) ==
LOC: EME 04:16
DX: R10.13 Epigastric pain (principal); G89.29 Other chronic pain; R07.89 Other chest pain; J44.9 Chronic obstructive pulmonary disease, unspecified; J45.909 Unspecified asthma, uncomplicated; I10 Essential (primary) hypertension; E78.5 Hyperlipidemia, unspecified; E11.9 Type 2 diabetes mellitus without complications; Z79.4 Long term (current) use of insulin; Z95.5 Presence of coronary angioplasty implant and graft; Z86.711 Personal history of pulmonary embolism; Z79.01 Long term (current) use of anticoagulants; Z90.49 Acquired absence of other specified parts of digestive tract; F17.200 Nicotine dependence, unspecified, uncomplicated
CPT/HCPCS: 71020; 80048; 84484; 85027; 93005; 99281; 99284; J2405; J7030

== ENCOUNTER 2017-01-30 17:52 | Inpatient (IN) | payer OTHER ==
[~2017-01-30] VITALS: Ht 185.4 cm; Wt 117.3 kg
[~2017-01-30 17:52] MED LIST changes: +DONNATAL1 TABLET PO
[2017-01-30 18:40] LABS: HEMATOCRIT 48.9 % (38.0-50.0); MCHC 36.2 G/DL (30.0-36.0); MCV 88.4 FL (86-99); MEAN PLAT.VOLUME 9.6 uM^3 (9.0-12.4); PLATELET COUNT 342 K/uL (156-360); RBC DIS.WIDTH-CV 12.2 % (11.8-14.6); RBC DIS.WIDTH-SD 39.8 % (39-53); RED BLOOD COUNT 5.53 M/uL (4.00-5.50); WHITE BLOOD COUNT 19.1 K/uL (4.1-10.2)
[2017-01-30 19:00] LABS: CHLORIDE 92 mEq/L (99-109); POTASSIUM 3.6 mEq/L (3.7-5.4); SODIUM 130 mEq/L (136-147)
[2017-01-30 19:04] LABS: ANION GAP 14 MEQ/L (2-14); TOTAL BILIRUBIN 0.6 mg/dL (0.0-1.0)
[2017-01-30 19:06] LABS: ALKALINE PHOSPHATASE 89 IU/L (3-129); GFR ESTIMATE (CALCULATED) > 59 mL/min/
[2017-01-30 19:07] LABS: UREA NITROGEN (BUN) 8 mg/dL (9-23)
[2017-01-30 19:13] LABS: GLUCOSE 473 mg/dL (70-99)
[2017-01-30 19:33] LABS: ADD MIUA? YES; BILIRUBIN NEGATIVE; BLOOD NEGATIVE; COLOR YELLOW ((YELLOW)); GLUCOSE (STRIP) >=500; KETONES NEGATIVE; LEUKOCYTES NEGATIVE; NITRITE NEGATIVE; PROTEIN (STRIP) 100; SPECIFIC GRAVITY 1.039 (1.000-1.030); UROBILINOGEN 0.2 MG/DL (0.2-1.0)
[2017-01-30 19:35] LABS: BACTERIA NONE SEEN /HPF; EPITHELIAL CELLS NONE SEEN /HPF; MUCUS NONE SEEN /LPF; RED BLOOD CELLS 0-5 /HPF (0-5); UCUL ADDED? NO; WHITE BLOOD CELLS 0-5 /HPF (0-5)
[2017-01-30 20:02] LABS: LIPASE 101 U/L (1.0-51.0)
[2017-01-30] MEDS ORDERED: LO-DOSE ASPIRIN81 M2 PO (21:51)
[2017-01-30] MEDS ORDERED: SEROQUEL200 MG PO (22:02)
[2017-01-30 23:51] LABS: POINT-OF-CARE METER ID UU13113747
[2017-01-31 01:07] VITALS: BP 142/82
[2017-01-31 06:03] LABS: POINT-OF-CARE METER ID UU13113725
[2017-01-31 07:09] LABS: Estimated Average Glucose 292 mg/dL (70-123); HEMOGLOBIN A1c (GLYCOHEMOGLOB) 11.8 % HGB (Below 5.7)
[2017-01-31 07:20] VITALS: BP 141/70
[2017-01-31 07:25] LABS: ANION GAP 9 MEQ/L (2-14); CHLORIDE 101 MEQ/L (99-109); GFR ESTIMATE (CALCULATED) > 59 mL/min/; GLUCOSE 279 mg/dL (70-99); POTASSIUM 4.2 MEQ/L (3.7-5.4); SAMPLE HEMOLYSIS CHECK 0; SAMPLE ICTERIC CHECK 0; SAMPLE LIPEMIA CHECK 0; SODIUM 133 MEQ/L (136-147); UREA NITROGEN (BUN) 6 mg/dL (9-23)
[2017-01-31 09:11] LABS: HEMATOCRIT 40.3 % (38.0-50.0); MCH 31.9 PG (29.0-34.0); MCHC 35.7 G/DL (30.0-36.0); MCV 89.4 FL (86-99); MEAN PLAT.VOLUME 9.4 uM^3 (9.0-12.4); PLATELET COUNT 258 K/uL (156-360); RBC DIS.WIDTH-CV 12.5 % (11.8-14.6); RED BLOOD COUNT 4.51 M/uL (4.00-5.50)
[2017-01-31 12:57] VITALS: BP 136/80
[2017-01-31 15:40] VITALS: BP 131/78
[2017-01-31 18:14] LABS: POINT-OF-CARE METER ID UU13113725
[2017-01-31 20:12] VITALS: BP 149/80
[2017-02-01 00:10] VITALS: BP 132/65
[2017-02-01 00:14] LABS: POINT-OF-CARE METER ID UU13113725
[2017-02-01 05:38] LABS: POINT-OF-CARE METER ID UU13113725
[2017-02-01 05:58] LABS: BASOPHIL COUNT 0.1 K/uL (0-0.1); EOSINOPHIL (%) 2.2 % (0-5); EOSINOPHIL COUNT 0.3 K/uL (0-0.3); HEMATOCRIT 41.3 % (38.0-50.0); IMMATURE GRANULOCYTE (%) 0.4 % (0.0-0.7); IMMATURE GRANULOCYTE COUNT 0.1 K/uL; INSTRUMENT ABS NEUTROPHIL CT 7.6 K/uL; LYMPHOCYTE COUNT 3.3 K/uL (1.0-2.8); MCH 32.8 PG (29.0-34.0); MCHC 36.6 G/DL (30.0-36.0); MCV 89.6 FL (86-99); MEAN PLAT.VOLUME 10.1 uM^3 (9.0-12.4); MONOCYTE (%) 6.2 % (3-12); MONOCYTE COUNT 0.8 K/uL (0-0.8); NEUTROPHIL (%) 63.1 % (45-76); NEUTROPHIL COUNT 7.6 K/uL (1.8-6.4); PLATELET COUNT 244 K/uL (156-360); RBC DIS.WIDTH-CV 12.7 % (11.8-14.6); RBC DIS.WIDTH-SD 41.7 % (39-53); RED BLOOD COUNT 4.61 M/uL (4.00-5.50)
[2017-02-01 06:24] LABS: ALKALINE PHOSPHATASE 64 IU/L (3-129); ANION GAP 9 MEQ/L (2-14); CHLORIDE 103 MEQ/L (99-109); GFR ESTIMATE (CALCULATED) > 59 mL/min/; GLUCOSE 192 mg/dL (70-99); POTASSIUM 3.8 MEQ/L (3.7-5.4); SAMPLE HEMOLYSIS CHECK 0; SAMPLE ICTERIC CHECK 0; SAMPLE LIPEMIA CHECK 0; SODIUM 137 MEQ/L (136-147); TOTAL BILIRUBIN 0.6 MG/DL (0.0-1.0); UREA NITROGEN (BUN) 6 mg/dL (9-23)
[2017-02-01 07:35] VITALS: BP 140/70
[2017-02-01 10:30] VITALS: BP 144/84
[2017-02-01 10:53] LABS: LIPASE 54 U/L (1.0-51.0)
[2017-02-01 11:42] LABS: POINT-OF-CARE METER ID UU13113725
[2017-02-01 16:02] VITALS: BP 133/70
[2017-02-01 21:40] LABS: POINT-OF-CARE METER ID UU13113725
[2017-02-02 00:13] VITALS: BP 126/67
[2017-02-02 06:08] LABS: BASOPHIL COUNT 0.1 K/uL (0-0.1); EOSINOPHIL (%) 2.6 % (0-5); EOSINOPHIL COUNT 0.2 K/uL (0-0.3); HEMATOCRIT 37.8 % (38.0-50.0); IMMATURE GRANULOCYTE (%) 0.4 % (0.0-0.7); INSTRUMENT ABS NEUTROPHIL CT 4.8 K/uL; LYMPHOCYTE COUNT 3.2 K/uL (1.0-2.8); MCH 32.5 PG (29.0-34.0); MCHC 36.5 G/DL (30.0-36.0); MCV 89.2 FL (86-99); MEAN PLAT.VOLUME 9.7 uM^3 (9.0-12.4); MONOCYTE (%) 8.4 % (3-12); MONOCYTE COUNT 0.8 K/uL (0-0.8); NEUTROPHIL (%) 53.1 % (45-76); NEUTROPHIL COUNT 4.8 K/uL (1.8-6.4); PLATELET COUNT 246 K/uL (156-360); RBC DIS.WIDTH-CV 12.3 % (11.8-14.6); RBC DIS.WIDTH-SD 39.8 % (39-53); RED BLOOD COUNT 4.24 M/uL (4.00-5.50); WHITE BLOOD COUNT 9.1 K/uL (4.1-10.2)
[2017-02-02 06:35] LABS: ALKALINE PHOSPHATASE 54 IU/L (3-129); ANION GAP 8 MEQ/L (2-14); CHLORIDE 108 MEQ/L (99-109); GFR ESTIMATE (CALCULATED) > 59 mL/min/; GLUCOSE 200 mg/dL (70-99); POTASSIUM 3.7 MEQ/L (3.7-5.4); SAMPLE HEMOLYSIS CHECK 0; SAMPLE ICTERIC CHECK 0; SAMPLE LIPEMIA CHECK 0; SODIUM 141 MEQ/L (136-147); TOTAL BILIRUBIN 0.5 MG/DL (0.0-1.0); UREA NITROGEN (BUN) 6 mg/dL (9-23)
[2017-02-02 06:45] LABS: INTER. NORMALIZED RATIO 1.1; PROTHROMBIN TIME 12.1 SEC (10.2-12.9)
[2017-02-02 07:35] VITALS: BP 188/93
[2017-02-02 11:21] VITALS: BP 120/70
[2017-02-02 15:51] LABS: POINT-OF-CARE METER ID UU13113725
[2017-02-02 16:13] VITALS: BP 162/81
[2017-02-03 00:14] VITALS: BP 157/77
[2017-02-03 05:44] LABS: BASOPHIL COUNT 0.1 K/uL (0-0.1); EOSINOPHIL (%) 2.7 % (0-5); EOSINOPHIL COUNT 0.3 K/uL (0-0.3); HEMATOCRIT 37.3 % (38.0-50.0); IMMATURE GRANULOCYTE (%) 0.3 % (0.0-0.7); INSTRUMENT ABS NEUTROPHIL CT 5.4 K/uL; LYMPHOCYTE COUNT 3.6 K/uL (1.0-2.8); MCHC 36.2 G/DL (30.0-36.0); MCV 88.4 FL (86-99); MEAN PLAT.VOLUME 10.3 uM^3 (9.0-12.4); MONOCYTE (%) 7.4 % (3-12); MONOCYTE COUNT 0.8 K/uL (0-0.8); NEUTROPHIL (%) 53.8 % (45-76); NEUTROPHIL COUNT 5.4 K/uL (1.8-6.4); PLATELET COUNT 245 K/uL (156-360); RBC DIS.WIDTH-CV 12.2 % (11.8-14.6); RBC DIS.WIDTH-SD 39.8 % (39-53); RED BLOOD COUNT 4.22 M/uL (4.00-5.50); WHITE BLOOD COUNT 10.1 K/uL (4.1-10.2)
[2017-02-03 05:53] LABS: INTER. NORMALIZED RATIO 1.3; PROTHROMBIN TIME 14.8 SEC (10.2-12.9)
[2017-02-03 06:17] LABS: POINT-OF-CARE METER ID UU13113725
[2017-02-03 06:31] LABS: ALKALINE PHOSPHATASE 51 IU/L (3-129); ANION GAP 7 MEQ/L (2-14); CHLORIDE 108 MEQ/L (99-109); GFR ESTIMATE (CALCULATED) > 59 mL/min/; GLUCOSE 249 mg/dL (70-99); POTASSIUM 3.5 MEQ/L (3.7-5.4); SAMPLE HEMOLYSIS CHECK 0; SAMPLE ICTERIC CHECK 0; SAMPLE LIPEMIA CHECK 0; SODIUM 141 MEQ/L (136-147); UREA NITROGEN (BUN) 4 mg/dL (9-23)
[2017-02-03 06:32] LABS: TOTAL BILIRUBIN 0.3 MG/DL (0.0-1.0)
[2017-02-03 08:37] VITALS: BP 130/73
[2017-02-03 14:57] VITALS: BP 191/100
[2017-02-03 21:50] LABS: POINT-OF-CARE METER ID UU13113725
[2017-02-04 00:09] VITALS: BP 146/83
[2017-02-04 05:41] LABS: POINT-OF-CARE METER ID UU13113725
[2017-02-04 06:08] LABS: INTER. NORMALIZED RATIO 1.8; PROTHROMBIN TIME 19.9 SEC (10.2-12.9)
[2017-02-04 08:15] VITALS: BP 144/78
[2017-02-04 11:31] LABS: POINT-OF-CARE METER ID UU13113725
[2017-02-04 15:40] LABS: POINT-OF-CARE METER ID UU13113725
[2017-02-04 16:28] VITALS: BP 168/82
[2017-02-04 21:44] VITALS: BP 158/88
[2017-02-05 00:27] VITALS: BP 162/79
[2017-02-05 05:35] LABS: POINT-OF-CARE METER ID UU13113725; POINT-OF-CARE USER ID STWHLR41
[2017-02-05 06:49] LABS: INTER. NORMALIZED RATIO 2.2; PROTHROMBIN TIME 24.7 SEC (10.2-12.9)
[2017-02-05 07:01] LABS: ANION GAP 7 MEQ/L (2-14); CHLORIDE 104 MEQ/L (99-109); GFR ESTIMATE (CALCULATED) > 59 mL/min/; GLUCOSE 247 mg/dL (70-99); POTASSIUM 3.8 MEQ/L (3.7-5.4); SAMPLE HEMOLYSIS CHECK 0; SAMPLE ICTERIC CHECK 0; SAMPLE LIPEMIA CHECK 0; SODIUM 139 MEQ/L (136-147); UREA NITROGEN (BUN) 7 mg/dL (9-23)
[2017-02-05 07:47] VITALS: BP 161/71
[2017-02-05 10:45] LABS: POINT-OF-CARE METER ID UU13113725
[2017-02-05] MEDS ORDERED: LISINOPRIL40 MG PO (11:19)
[2017-02-05] MEDS ORDERED: NICOTINE PATCH1 EAC2 TD (11:19)
[2017-02-05] MEDS ORDERED: METOPROLOL TART75 MG PO (11:19)
[2017-02-05] MEDS ORDERED: ATORVASTATIN CA80 MG PO (11:19)
[2017-02-05] MEDS ORDERED: SPIRIVA RESPIMAT4 GM IH (11:19)
[2017-02-05] MEDS ORDERED: PANTOPRAZOLE SO40 MG PO (11:24)
[2017-02-05] MEDS ORDERED: DIAZEPAM10 MG PO (11:24)
[2017-02-05] MEDS ORDERED: SERTRALINE HCL100 MG PO (11:24)
[2017-02-05] MEDS ORDERED: LEVEMIR FL100 UNIT/1 SC (11:24)
[2017-02-05] MEDS ORDERED: QUETIAPINE FUM100 MG PO (11:24)
[2017-02-05] MEDS ORDERED: DOCUSATE SODIU100 MG PO (11:24)
[2017-02-05] MEDS ORDERED: PEPCID AC20 MG PO (12:28)
[2017-02-05] MEDS ORDERED: INCRUSE ELLI62.5 MCG IH (12:28)
[2017-02-05] MEDS ORDERED: COUMADIN5 MG PO (14:42)
[2017-02-05] MEDS ORDERED: COUMADIN1 MG PO (14:52)
== END 2017-02-05 15:32 | disposition home health service (06) | DRG 440 ==
LOC: EME 17:52 → 5EAST 22:38 → EDOF 22:38 → ENRESERV 22:49 → 5EAST 01-31 01:14 → ENPENDDIS 02-05 → 5EAST 02-05 15:32
PROVIDERS: Hospitalist; Physician Assistant
DX: K85.90 Acute pancreatitis without necrosis or infection, unspecified (principal); E11.65 Type 2 diabetes mellitus with hyperglycemia; E86.0 Dehydration; E87.6 Hypokalemia; E78.5 Hyperlipidemia, unspecified; I25.10 Atherosclerotic heart disease of native coronary artery without angina pectoris; I48.0 Paroxysmal atrial fibrillation; I10 Essential (primary) hypertension; J44.9 Chronic obstructive pulmonary disease, unspecified; K21.9 Gastro-esophageal reflux disease without esophagitis; F17.200 Nicotine dependence, unspecified, uncomplicated; F31.9 Bipolar disorder, unspecified; F41.9 Anxiety disorder, unspecified; G47.33 Obstructive sleep apnea (adult) (pediatric); K59.00 Constipation, unspecified; G43.909 Migraine, unspecified, not intractable, without status migrainosus; R00.0 Tachycardia, unspecified; E66.01 Morbid (severe) obesity due to excess calories; I25.2 Old myocardial infarction; Z86.711 Personal history of pulmonary embolism; Z86.73 Personal history of transient ischemic attack (TIA), and cerebral infarction without residual deficits; Z91.19 Patient's noncompliance with other medical treatment and regimen; Z79.01 Long term (current) use of anticoagulants; Z79.82 Long term (current) use of aspirin; Z99.81 Dependence on supplemental oxygen; Z79.4 Long term (current) use of insulin; Z91.041 Radiographic dye allergy status; Z95.5 Presence of coronary angioplasty implant and graft; Z95.828 Presence of other vascular implants and grafts; Z68.34 Body mass index [BMI] 34.0-34.9, adult
CPT/HCPCS: 74176; 80048; 80053; 81003; 82010; 82948; 83036; 83690; 85025; 85027; 85610; 87040; 93005; 94640; 94799; 99202; 99281; 99285; J0360; J1170; J1644; J1650; J1815; J2060; J2405; J2765; J3010; J7030; S0028

== ENCOUNTER 2017-02-17 07:47 | Observation (INO) | payer OTHER ==
[~2017-02-17] VITALS: Ht 185.4 cm; Wt 110.8 kg
[~2017-02-17 07:47] MED LIST changes: +COUMADIN1 MG PO; +DOCUSATE SODIU100 MG PO; +INCRUSE ELLI62.5 MCG IH; +LEVEMIR FL100 UNIT/1 SC; +LISINOPRIL40 MG PO; +LO-DOSE ASPIRIN81 M2 PO; +METOPROLOL TART75 MG PO; +NICOTINE PATCH1 EAC2 TD; +PEPCID AC20 MG PO; +QUETIAPINE FUM100 MG PO; +SPIRIVA RESPIMAT4 GM IH
[2017-02-17 09:03] LABS: INTER. NORMALIZED RATIO 1.2
[2017-02-17 09:04] LABS: CHLORIDE 91 mEq/L (99-109); POTASSIUM 4.2 mEq/L (3.7-5.4); SODIUM 134 mEq/L (136-147)
[2017-02-17 09:06] LABS: CARBON DIOXIDE (BICARBONATE) 32.7 MEQ/L (20-31)
[2017-02-17 09:07] LABS: ANION GAP 18 MEQ/L (2-14)
[2017-02-17 09:08] LABS: TOTAL BILIRUBIN 0.5 mg/dL (0.0-1.0)
[2017-02-17 09:09] LABS: ALKALINE PHOSPHATASE 96 IU/L (3-129)
[2017-02-17 09:10] LABS: GFR ESTIMATE (CALCULATED) > 59 mL/min/
[2017-02-17 09:11] LABS: UREA NITROGEN (BUN) 16 mg/dL (9-23)
[2017-02-17 09:12] LABS: PROTHROMBIN TIME 12.7 SEC (10.2-12.9)
[2017-02-17 09:13] LABS: GLUCOSE 488 mg/dL (70-99); LIPASE 7 U/L (1.0-51.0)
[2017-02-17 09:18] LABS: BASOPHIL COUNT 0.1 K/uL (0-0.1); EOSINOPHIL (%) 0.1 % (0-5); HEMATOCRIT 47.2 % (38.0-50.0); IMMATURE GRANULOCYTE (%) 0.5 % (0.0-0.7); IMMATURE GRANULOCYTE COUNT 0.1 K/uL; INSTRUMENT ABS NEUTROPHIL CT 15.7 K/uL; LYMPHOCYTE COUNT 1.9 K/uL (1.0-2.8); MCH 31.8 PG (29.0-34.0); MCV 88.2 FL (86-99); MEAN PLAT.VOLUME 9.4 uM^3 (9.0-12.4); MONOCYTE (%) 5.9 % (3-12); MONOCYTE COUNT 1.1 K/uL (0-0.8); NEUTROPHIL (%) 83.2 % (45-76); NEUTROPHIL COUNT 15.7 K/uL (1.8-6.4); PLATELET COUNT 338 K/uL (156-360); RBC DIS.WIDTH-CV 12.9 % (11.8-14.6); RBC DIS.WIDTH-SD 41.8 % (39-53); RED BLOOD COUNT 5.35 M/uL (4.00-5.50); WHITE BLOOD COUNT 18.9 K/uL (4.1-10.2)
[2017-02-17 10:53] LABS: POINT-OF-CARE METER ID UU13113747
[2017-02-17 13:04] LABS: CHLORIDE 97 mEq/L (99-109); POTASSIUM 3.6 mEq/L (3.7-5.4); SODIUM 137 mEq/L (136-147)
[2017-02-17 13:06] LABS: GLUCOSE 320 mg/dL (70-99)
[2017-02-17 13:07] LABS: ANION GAP 14 MEQ/L (2-14)
[2017-02-17 13:10] LABS: GFR ESTIMATE (CALCULATED) > 59 mL/min/
[2017-02-17 13:11] LABS: UREA NITROGEN (BUN) 13 mg/dL (9-23)
[2017-02-17 14:18] LABS: ADD MIUA? YES; BILIRUBIN NEGATIVE; BLOOD NEGATIVE; COLOR YELLOW ((YELLOW)); GLUCOSE (STRIP) >=500; KETONES 5; LEUKOCYTES NEGATIVE; NITRITE NEGATIVE; PROTEIN (STRIP) 100; SPECIFIC GRAVITY 1.032 (1.000-1.030); UROBILINOGEN 0.2 MG/DL (0.2-1.0)
[2017-02-17 14:24] LABS: POINT-OF-CARE METER ID UU13113747
[2017-02-17 14:30] LABS: BACTERIA NONE SEEN /HPF; EPITHELIAL CELLS NONE SEEN /HPF; HYALINE CASTS 0-5 /LPF; MUCUS NONE SEEN /LPF; RED BLOOD CELLS 0-5 /HPF (0-5); UCUL ADDED? NO; WHITE BLOOD CELLS 0-5 /HPF (0-5)
[2017-02-17] MEDS ORDERED: COUMADIN5 MG PO ×2 (14:30→14:31)
[2017-02-17] MEDS ORDERED: LEVEMIR100 UNIT/2 SC (14:33)
[2017-02-17] MEDS ORDERED: PROTONIX40 MG PO (14:34)
[2017-02-17] MEDS ORDERED: AMBIEN CR12.5 MG PO (14:34)
[2017-02-17] MEDS ORDERED: VENTOLIN HFA18 GM IH (14:35)
[2017-02-17] MEDS ORDERED: OXYCODONE HCL10 MG PO (14:35)
[2017-02-17 15:41] LABS: TROP-I INTERPRETATION NEGATIVE; TROPONIN-I 0.02 ng/mL (0.0-0.30)
[2017-02-17 19:30] VITALS: BP 146/86
[2017-02-17 21:15] LABS: TROP-I INTERPRETATION NEGATIVE; TROPONIN-I 0.01 ng/mL (0.0-0.30)
[2017-02-17 21:18] LABS: ALKALINE PHOSPHATASE 62 IU/L (3-129); ANION GAP 7 MEQ/L (2-14); CHLORIDE 100 MEQ/L (99-109); GFR ESTIMATE (CALCULATED) > 59 mL/min/; GLUCOSE 267 mg/dL (70-99); MAGNESIUM 1.6 mg/dl (1.3-2.7); POTASSIUM 3.7 MEQ/L (3.7-5.4); SAMPLE HEMOLYSIS CHECK 0; SAMPLE ICTERIC CHECK 0; SAMPLE LIPEMIA CHECK 0; SODIUM 136 MEQ/L (136-147); TOTAL BILIRUBIN 0.5 MG/DL (0.0-1.0); UREA NITROGEN (BUN) 10 mg/dL (9-23)
[2017-02-18 03:00] LABS: INTER. NORMALIZED RATIO 1.2; PROTHROMBIN TIME 12.8 SEC (10.2-12.9)
[2017-02-18 03:01] LABS: CHLORIDE 102 mEq/L (99-109); SODIUM 139 mEq/L (136-147)
[2017-02-18 03:03] LABS: GLUCOSE 229 mg/dL (70-99)
[2017-02-18 03:04] LABS: ANION GAP 11 MEQ/L (2-14)
[2017-02-18 03:07] LABS: GFR ESTIMATE (CALCULATED) > 59 mL/min/; UREA NITROGEN (BUN) 8 mg/dL (9-23)
[2017-02-18 03:13] LABS: TROP-I INTERPRETATION NEGATIVE; TROPONIN-I 0.01 ng/mL (0.0-0.30)
[2017-02-18 04:42] VITALS: BP 105/60
[2017-02-18 08:31] LABS: HEMATOCRIT 39.2 % (38.0-50.0); MCH 31.8 PG (29.0-34.0); MCHC 34.4 G/DL (30.0-36.0); MCV 92.5 FL (86-99); RBC DIS.WIDTH-CV 13.2 % (11.8-14.6); RBC DIS.WIDTH-SD 44.4 % (39-53); RED BLOOD COUNT 4.24 M/uL (4.00-5.50); WHITE BLOOD COUNT 10.9 K/uL (4.1-10.2)
[2017-02-18 08:47] LABS: MEAN PLAT.VOLUME 9.1 uM^3 (9.0-12.4); PLAT.SUFFICIENCY ADEQUATE
[2017-02-18 08:57] LABS: ANION GAP 9 MEQ/L (2-14); CHLORIDE 105 MEQ/L (99-109); GFR ESTIMATE (CALCULATED) > 59 mL/min/; GLUCOSE 171 mg/dL (70-99); SAMPLE HEMOLYSIS CHECK 0; SAMPLE ICTERIC CHECK 0; SAMPLE LIPEMIA CHECK 0; SODIUM 137 MEQ/L (136-147); UREA NITROGEN (BUN) 9 mg/dL (9-23)
[2017-02-18 09:02] LABS: PLATELET COUNT 225 K/uL (156-360)
[2017-02-18] MEDS ORDERED: REGLAN10 MG PO (11:48)
[2017-02-18 12:37] VITALS: BP 128/61
[2017-02-18 15:04] LABS: POINT-OF-CARE METER ID UU14162513
[2017-02-18 15:37] VITALS: BP 123/62
== END 2017-02-18 15:48 | disposition home or self-care (01) ==
LOC: EME 07:47 → 5WEST 13:30 → EDOF 13:30 → ENRESERV 13:39 → 5WEST 15:33
PROVIDERS: Internal Medicine; Physician Assistant; Physician Assistant Medical
DX: E86.0 Dehydration (principal); R11.2 Nausea with vomiting, unspecified; I25.10 Atherosclerotic heart disease of native coronary artery without angina pectoris; E11.65 Type 2 diabetes mellitus with hyperglycemia; Z91.14 Patient's other noncompliance with medication regimen; T38.3X6A Underdosing of insulin and oral hypoglycemic [antidiabetic] drugs, initial encounter; T45.516A Underdosing of anticoagulants, initial encounter; Z91.128 Patient's intentional underdosing of medication regimen for other reason; Z86.711 Personal history of pulmonary embolism; Z79.01 Long term (current) use of anticoagulants; J44.9 Chronic obstructive pulmonary disease, unspecified; I10 Essential (primary) hypertension; E78.5 Hyperlipidemia, unspecified; F31.9 Bipolar disorder, unspecified; G47.33 Obstructive sleep apnea (adult) (pediatric); E66.9 Obesity, unspecified; I25.2 Old myocardial infarction; K57.30 Diverticulosis of large intestine without perforation or abscess without bleeding; K21.9 Gastro-esophageal reflux disease without esophagitis; I48.91 Unspecified atrial fibrillation; G40.909 Epilepsy, unspecified, not intractable, without status epilepticus; Z86.73 Personal history of transient ischemic attack (TIA), and cerebral infarction without residual deficits; F17.210 Nicotine dependence, cigarettes, uncomplicated; Z79.4 Long term (current) use of insulin
CPT/HCPCS: 74176; 80048; 80048 91; 80053; 81003; 82010; 82803; 82948; 83605; 83690; 83735; 84484; 85025; 85027; 85610; 87040; 93005; 99202; 99281; 99284; C9113; G0378; J1815; J2405; J2765; J3010; J7030; J7050; J7120

== ENCOUNTER 2017-04-03 22:53 | Emergency (ER) | payer OTHER ==
[~2017-04-03] VITALS: Ht 185.4 cm; Wt 117.5 kg
[~2017-04-03 22:53] MED LIST changes: +OXYCODONE HCL10 MG PO; +REGLAN10 MG PO
[2017-04-04 00:21] LABS: CHLORIDE 104 mEq/L (99-109); POTASSIUM 4.4 mEq/L (3.7-5.4); SODIUM 139 mEq/L (136-147)
[2017-04-04 00:23] LABS: HEMATOCRIT 47.2 % (38.0-50.0); MCH 31.8 PG (29.0-34.0); MCHC 34.7 G/DL (30.0-36.0); MCV 91.7 FL (86-99); PLATELET COUNT 294 K/uL (156-360); RBC DIS.WIDTH-CV 13.5 % (11.8-14.6); RBC DIS.WIDTH-SD 45.5 % (39-53); RED BLOOD COUNT 5.15 M/uL (4.00-5.50); WHITE BLOOD COUNT 17.3 K/uL (4.1-10.2)
[2017-04-04 00:24] LABS: GLUCOSE 224 mg/dL (70-99)
[2017-04-04 00:25] LABS: ANION GAP 13 MEQ/L (2-14)
[2017-04-04 00:26] LABS: TOTAL BILIRUBIN 0.3 mg/dL (0.0-1.0)
[2017-04-04 00:27] LABS: ALKALINE PHOSPHATASE 62 IU/L (3-129); GFR ESTIMATE (CALCULATED) > 59 mL/min/
[2017-04-04 00:28] LABS: UREA NITROGEN (BUN) 12 mg/dL (9-23)
[2017-04-04 00:31] LABS: LIPASE 31 U/L (1.0-51.0)
[2017-04-04 01:17] VITALS: BP 134/89
== END 2017-04-04 01:44 | disposition home or self-care (01) ==
LOC: EME 22:53
PROVIDERS: Physician Assistant
DX: R11.10 Vomiting, unspecified (principal); R10.9 Unspecified abdominal pain; K21.9 Gastro-esophageal reflux disease without esophagitis; J44.9 Chronic obstructive pulmonary disease, unspecified; I10 Essential (primary) hypertension; E78.5 Hyperlipidemia, unspecified; E11.9 Type 2 diabetes mellitus without complications; I25.2 Old myocardial infarction; F41.9 Anxiety disorder, unspecified; F32.9 Major depressive disorder, single episode, unspecified; F31.9 Bipolar disorder, unspecified; Z86.73 Personal history of transient ischemic attack (TIA), and cerebral infarction without residual deficits; Z86.711 Personal history of pulmonary embolism; Z79.01 Long term (current) use of anticoagulants; F17.200 Nicotine dependence, unspecified, uncomplicated; Z88.8 Allergy status to other drugs, medicaments and biological substances
CPT/HCPCS: 80053; 81003; 83690; 85027; 99281; 99285; J2405; J3010; J7030

== ENCOUNTER 2017-04-17 00:31 | Inpatient (IN) | payer OTHER ==
[~2017-04-17] VITALS: Ht 185.4 cm; Wt 113.2 kg
[~2017-04-17 00:31] MED LIST changes: +LIDOCAINE700 MG TP
[2017-04-17 01:03] LABS: MCH 31.7 PG (29.0-34.0); MCHC 35.2 G/DL (30.0-36.0); MEAN PLAT.VOLUME 9.5 uM^3 (9.0-12.4); PLATELET COUNT 333 K/uL (156-360); RBC DIS.WIDTH-CV 13.1 % (11.8-14.6); RBC DIS.WIDTH-SD 43.1 % (39-53); RED BLOOD COUNT 4.89 M/uL (4.00-5.50); WHITE BLOOD COUNT 17.7 K/uL (4.1-10.2)
[2017-04-17 01:09] LABS: INTER. NORMALIZED RATIO 1.3; PROTHROMBIN TIME 14.5 SEC (10.2-12.9)
[2017-04-17 01:11] LABS: PTT 27.7 SEC (25-37)
[2017-04-17 01:14] LABS: CHLORIDE 96 mEq/L (99-109); SODIUM 132 mEq/L (136-147)
[2017-04-17 01:17] LABS: ANION GAP 11 MEQ/L (2-14)
[2017-04-17 01:19] LABS: ALKALINE PHOSPHATASE 72 IU/L (3-129)
[2017-04-17 01:20] LABS: GFR ESTIMATE (CALCULATED) > 59 mL/min/
[2017-04-17 01:21] LABS: UREA NITROGEN (BUN) 9 mg/dL (9-23)
[2017-04-17 01:23] LABS: LIPASE 47 U/L (1.0-51.0)
[2017-04-17 01:30] LABS: GLUCOSE 413 mg/dL (70-99); TOTAL BILIRUBIN 0.6 mg/dL (0.0-1.0)
[2017-04-17 03:00] LABS: ADD MIUA? YES; BILIRUBIN NEGATIVE; BLOOD NEGATIVE; COLOR YELLOW ((YELLOW)); GLUCOSE (STRIP) >=500; KETONES NEGATIVE; LEUKOCYTES NEGATIVE; NITRITE NEGATIVE; PROTEIN (STRIP) 100; SPECIFIC GRAVITY 1.029 (1.000-1.030); UROBILINOGEN 0.2 MG/DL (0.2-1.0)
[2017-04-17 03:16] LABS: BACTERIA NONE SEEN /HPF; EPITHELIAL CELLS RARE /HPF; MUCUS TRACE /LPF; RED BLOOD CELLS 0-5 /HPF (0-5); UCUL ADDED? NO; WHITE BLOOD CELLS 0-5 /HPF (0-5)
[2017-04-17] MEDS ORDERED: ATENOLOL50 MG PO (04:51)
[2017-04-17] MEDS ORDERED: LOPRESSOR100 M1 PO (04:51)
[2017-04-17] MEDS ORDERED: COUMADIN7.5 MG PO (04:52)
[2017-04-17] MEDS ORDERED: COUMADIN10 MG PO (04:52)
[2017-04-17] MEDS ORDERED: OXYCODONE HCL15 MG PO (04:53)
[2017-04-17] MEDS ORDERED: LANTUS 10100 UNITS/ SC (04:54)
[2017-04-17] MEDS ORDERED: GLUCOPHAGE1000 MG PO (04:54)
[2017-04-17 05:08] LABS: POINT-OF-CARE METER ID UU13113747
[2017-04-17 07:30] VITALS: BP 186/92
[2017-04-17 10:31] LABS: MAGNESIUM 1.8 mg/dL (1.3-2.7)
[2017-04-17 11:29] VITALS: BP 163/89
[2017-04-17 16:15] VITALS: BP 166/97
[2017-04-17 17:03] VITALS: BP 128/60
[2017-04-17 17:57] LABS: POINT-OF-CARE METER ID UU13113725
[2017-04-18 00:10] LABS: POINT-OF-CARE METER ID UU13113725
[2017-04-18 06:14] LABS: BASOPHIL COUNT 0.1 K/uL (0-0.1); EOSINOPHIL (%) 1.9 % (0-5); EOSINOPHIL COUNT 0.3 K/uL (0-0.3); HEMATOCRIT 40.6 % (38.0-50.0); IMMATURE GRANULOCYTE (%) 0.3 % (0.0-0.7); INSTRUMENT ABS NEUTROPHIL CT 9.5 K/uL; LYMPHOCYTE COUNT 3.4 K/uL (1.0-2.8); MCH 31.3 PG (29.0-34.0); MCHC 34.5 G/DL (30.0-36.0); MCV 90.8 FL (86-99); MEAN PLAT.VOLUME 9.5 uM^3 (9.0-12.4); MONOCYTE (%) 6.3 % (3-12); MONOCYTE COUNT 0.9 K/uL (0-0.8); NEUTROPHIL COUNT 9.5 K/uL (1.8-6.4); PLATELET COUNT 276 K/uL (156-360); RBC DIS.WIDTH-SD 43.1 % (39-53); RED BLOOD COUNT 4.47 M/uL (4.00-5.50); WHITE BLOOD COUNT 14.2 K/uL (4.1-10.2)
[2017-04-18 06:33] LABS: POINT-OF-CARE METER ID UU13113725
[2017-04-18 06:53] LABS: ALKALINE PHOSPHATASE 62 IU/L (3-129); ANION GAP 9 MEQ/L (2-14); CHLORIDE 106 MEQ/L (99-109); DIRECT BILIRUBIN 0.1 mg/dL (0.0-0.3); GFR ESTIMATE (CALCULATED) > 59 mL/min/; LIPASE 36 U/L (1.0-51.0); POTASSIUM 3.9 MEQ/L (3.7-5.4); SAMPLE HEMOLYSIS CHECK 0; SAMPLE ICTERIC CHECK 0; SAMPLE LIPEMIA CHECK 0; TOTAL BILIRUBIN 0.6 MG/DL (0.0-1.0); UREA NITROGEN (BUN) 7 mg/dL (9-23)
[2017-04-18 06:55] LABS: GLUCOSE 146 mg/dL (70-99); SODIUM 139 MEQ/L (136-147)
[2017-04-18 07:56] VITALS: BP 157/95
[2017-04-18 09:56] LABS: INTER. NORMALIZED RATIO 1.4; PROTHROMBIN TIME 15.8 SEC (10.2-12.9)
[2017-04-18 11:49] VITALS: BP 160/90
[2017-04-18 17:03] VITALS: BP 156/89
[2017-04-18 17:32] LABS: POINT-OF-CARE METER ID UU13113774
[2017-04-19 00:15] VITALS: BP 136/72
[2017-04-19 00:24] LABS: POINT-OF-CARE METER ID UU13113774
[2017-04-19 03:35] VITALS: BP 106/52
[2017-04-19 05:44] LABS: INTER. NORMALIZED RATIO 1.3; PROTHROMBIN TIME 14.9 SEC (10.2-12.9)
[2017-04-19 06:21] LABS: POINT-OF-CARE METER ID UU13113725
[2017-04-19 08:02] VITALS: BP 128/71
[2017-04-19 11:53] VITALS: BP 153/88
[2017-04-19 12:23] LABS: POINT-OF-CARE METER ID UU13113725
[2017-04-19 16:35] VITALS: BP 135/60
[2017-04-20] VITALS: BP 149/76
[2017-04-20 00:11] LABS: POINT-OF-CARE METER ID UU13113725
[2017-04-20 06:13] LABS: BASOPHIL COUNT 0.1 K/uL (0-0.1); EOSINOPHIL (%) 3.7 % (0-5); EOSINOPHIL COUNT 0.4 K/uL (0-0.3); HEMATOCRIT 36.3 % (38.0-50.0); IMMATURE GRANULOCYTE (%) 0.3 % (0.0-0.7); INSTRUMENT ABS NEUTROPHIL CT 7.5 K/uL; LYMPHOCYTE COUNT 2.7 K/uL (1.0-2.8); MCH 31.1 PG (29.0-34.0); MCHC 34.2 G/DL (30.0-36.0); MEAN PLAT.VOLUME 9.5 uM^3 (9.0-12.4); MONOCYTE (%) 6.7 % (3-12); MONOCYTE COUNT 0.8 K/uL (0-0.8); NEUTROPHIL COUNT 7.5 K/uL (1.8-6.4); PLATELET COUNT 265 K/uL (156-360); RBC DIS.WIDTH-CV 12.8 % (11.8-14.6); RBC DIS.WIDTH-SD 42.2 % (39-53); RED BLOOD COUNT 3.99 M/uL (4.00-5.50); WHITE BLOOD COUNT 11.5 K/uL (4.1-10.2)
[2017-04-20 06:13] LABS: POINT-OF-CARE METER ID UU13113774
[2017-04-20 06:32] LABS: INTER. NORMALIZED RATIO 1.3; PROTHROMBIN TIME 15.1 SEC (10.2-12.9)
[2017-04-20 06:35] LABS: TRIGLYCERIDES 83 MG/DL (Normal: <150)
[2017-04-20 08:02] VITALS: BP 167/74
[2017-04-20 11:41] LABS: POINT-OF-CARE METER ID UU13113725
[2017-04-20 15:58] VITALS: BP 151/74
[2017-04-20 18:52] LABS: POINT-OF-CARE METER ID UU13113725
[2017-04-20 23:24] VITALS: BP 152/82
[2017-04-20 23:39] LABS: POINT-OF-CARE METER ID UU13113725
[2017-04-21 06:01] LABS: POINT-OF-CARE METER ID UU13113774
[2017-04-21 06:11] LABS: INTER. NORMALIZED RATIO 1.6
[2017-04-21 07:25] VITALS: BP 152/78
[2017-04-21 12:54] LABS: POINT-OF-CARE METER ID UU13113725
[2017-04-21 16:17] LABS: POINT-OF-CARE METER ID UU13113725
[2017-04-21 16:55] VITALS: BP 150/76
[2017-04-21 23:54] LABS: POINT-OF-CARE METER ID UU13113725
[2017-04-22 00:11] VITALS: BP 146/88
[2017-04-22 05:57] LABS: INTER. NORMALIZED RATIO 1.8; PROTHROMBIN TIME 20.3 SEC (10.2-12.9)
[2017-04-22 05:59] LABS: POINT-OF-CARE METER ID UU13113725
[2017-04-22 07:15] VITALS: BP 132/84
[2017-04-22 11:52] VITALS: BP 160/70
[2017-04-22 12:15] LABS: POINT-OF-CARE METER ID UU13113725
[2017-04-22 15:49] LABS: POINT-OF-CARE METER ID UU13113725
[2017-04-22 17:38] LABS: POINT-OF-CARE METER ID UU13113725
[2017-04-22 23:16] VITALS: BP 151/78
[2017-04-22 23:46] LABS: POINT-OF-CARE METER ID UU13113725
[2017-04-23 06:09] LABS: POINT-OF-CARE METER ID UU13113725
[2017-04-23 06:41] LABS: INTER. NORMALIZED RATIO 2.3
[2017-04-23 07:59] VITALS: BP 152/70
[2017-04-23 08:42] VITALS: BP 152/70
[2017-04-23] MEDS ORDERED: HUMULIN N100 UNIT/2 SC (11:02)
[2017-04-23 11:56] LABS: POINT-OF-CARE METER ID UU13113774
== END 2017-04-23 12:15 | disposition home or self-care (01) | DRG 439 ==
LOC: EME 00:31 → 5EAST 05:26 → EDOF 05:26 → ENRESERV 05:28 → 5EAST 07:28
PROVIDERS: Emergency Medicine; Hospitalist; Internal Medicine; Student in an Organized Health Care Education/Training Program
DX: K85.90 Acute pancreatitis without necrosis or infection, unspecified (principal); E66.01 Morbid (severe) obesity due to excess calories; G89.29 Other chronic pain; K92.0 Hematemesis; E11.65 Type 2 diabetes mellitus with hyperglycemia; K57.12 Diverticulitis of small intestine without perforation or abscess without bleeding; K86.1 Other chronic pancreatitis; I10 Essential (primary) hypertension; E78.5 Hyperlipidemia, unspecified; I48.91 Unspecified atrial fibrillation; F31.9 Bipolar disorder, unspecified; G47.33 Obstructive sleep apnea (adult) (pediatric); F17.210 Nicotine dependence, cigarettes, uncomplicated; J44.9 Chronic obstructive pulmonary disease, unspecified; K21.9 Gastro-esophageal reflux disease without esophagitis; K43.9 Ventral hernia without obstruction or gangrene; I25.2 Old myocardial infarction; F10.11 Alcohol abuse, in remission; Z79.01 Long term (current) use of anticoagulants; Z68.32 Body mass index [BMI] 32.0-32.9, adult; Z79.4 Long term (current) use of insulin; Z90.49 Acquired absence of other specified parts of digestive tract; Z86.711 Personal history of pulmonary embolism; Z86.73 Personal history of transient ischemic attack (TIA), and cerebral infarction without residual deficits
CPT/HCPCS: 74177; 80048; 80053; 80076; 81003; 82948; 83690; 83735; 84478; 85025; 85027; 85610; 85730; 99281; 99285; J0360; J1170; J1200; J1650; J1815; J2405; J2765; J3010; J3411; J3475; J7030; S0028

== ENCOUNTER 2017-04-29 15:34 | Emergency (ER) | payer OTHER ==
[~2017-04-29] VITALS: Ht 185.4 cm; Wt 113.4 kg
[~2017-04-29 15:34] MED LIST changes: +ATENOLOL50 MG PO; +GLUCOPHAGE1000 MG PO; +HUMULIN N100 UNIT/2 SC
[2017-04-29 16:52] LABS: HEMATOCRIT 42.2 % (38.0-50.0); MCH 31.8 PG (29.0-34.0); MCHC 35.3 G/DL (30.0-36.0); MCV 90.2 FL (86-99); MEAN PLAT.VOLUME 9.6 uM^3 (9.0-12.4); PLATELET COUNT 341 K/uL (156-360); RBC DIS.WIDTH-CV 13.1 % (11.8-14.6); RBC DIS.WIDTH-SD 42.8 % (39-53); RED BLOOD COUNT 4.68 M/uL (4.00-5.50); WHITE BLOOD COUNT 13.9 K/uL (4.1-10.2)
[2017-04-29 16:54] LABS: CHLORIDE 100 mEq/L (99-109); POTASSIUM 4.2 mEq/L (3.7-5.4); SODIUM 132 mEq/L (136-147)
[2017-04-29 16:56] LABS: GLUCOSE 267 mg/dL (70-99)
[2017-04-29 16:57] LABS: ANION GAP 11 MEQ/L (2-14)
[2017-04-29 16:58] LABS: TOTAL BILIRUBIN 0.3 mg/dL (0.0-1.0)
[2017-04-29 16:59] LABS: ALKALINE PHOSPHATASE 104 IU/L (3-129)
[2017-04-29 17:00] LABS: GFR ESTIMATE (CALCULATED) > 59 mL/min/
[2017-04-29 17:01] LABS: UREA NITROGEN (BUN) 5 mg/dL (9-23)
[2017-04-29 17:03] LABS: LIPASE 10 U/L (1.0-51.0)
[2017-04-29 17:08] LABS: AMYLASE 19 IU/L (1-118)
[2017-04-29 18:11] LABS: TROP-I INTERPRETATION NEGATIVE; TROPONIN-I < 0.01 ng/mL (0.0-0.30)
[2017-04-29 18:32] LABS: ADD MIUA? YES; BILIRUBIN NEGATIVE; BLOOD NEGATIVE; COLOR YELLOW ((YELLOW)); GLUCOSE (STRIP) 150; KETONES NEGATIVE; LEUKOCYTES NEGATIVE; NITRITE NEGATIVE; PROTEIN (STRIP) 100; SPECIFIC GRAVITY 1.021 (1.000-1.030); UROBILINOGEN 0.2 MG/DL (0.2-1.0)
[2017-04-29 18:36] LABS: BACTERIA RARE /HPF; EPITHELIAL CELLS NONE SEEN /HPF; MUCUS TRACE /LPF; RED BLOOD CELLS 0-5 /HPF (0-5); UCUL ADDED? NO; WHITE BLOOD CELLS 0-5 /HPF (0-5)
[2017-04-29] MEDS ORDERED: ZOFRAN ODT4 MG PO (19:29)
[2017-04-29] MEDS ORDERED: PERCOCET 5/31 TABLET PO (19:29)
[2017-04-29 19:46] VITALS: BP 161/94
== END 2017-04-29 19:40 | disposition home or self-care (01) ==
LOC: EME 15:34
PROVIDERS: Nurse Practitioner Family
DX: R10.11 Right upper quadrant pain (principal); K52.9 Noninfective gastroenteritis and colitis, unspecified; M54.9 Dorsalgia, unspecified; Z90.49 Acquired absence of other specified parts of digestive tract; I10 Essential (primary) hypertension; E11.9 Type 2 diabetes mellitus without complications; Z79.84 Long term (current) use of oral hypoglycemic drugs; Z86.711 Personal history of pulmonary embolism; Z79.01 Long term (current) use of anticoagulants; F17.200 Nicotine dependence, unspecified, uncomplicated
CPT/HCPCS: 74177; 80053; 81003; 82150; 83690; 84484; 85027; 99281; 99285; J1200; J2405; J3010; J7030

== ENCOUNTER 2017-05-03 14:44 | Observation (INO) | payer OTHER ==
[~2017-05-03] VITALS: Ht 185.4 cm; Wt 115.0 kg
[~2017-05-03 14:44] MED LIST changes: +PERCOCET 5/31 TABLET PO
[2017-05-03 15:23] LABS: HEMATOCRIT 39.3 % (38.0-50.0); MCHC 35.6 G/DL (30.0-36.0); MCV 89.7 FL (86-99); MEAN PLAT.VOLUME 9.4 uM^3 (9.0-12.4); PLATELET COUNT 280 K/uL (156-360); RBC DIS.WIDTH-SD 42.8 % (39-53); RED BLOOD COUNT 4.38 M/uL (4.00-5.50); WHITE BLOOD COUNT 15.5 K/uL (4.1-10.2)
[2017-05-03 15:29] LABS: PROTHROMBIN TIME 11.8 SEC (10.2-12.9)
[2017-05-03 15:31] LABS: CHLORIDE 101 mEq/L (99-109); POTASSIUM 3.9 mEq/L (3.7-5.4); PTT 28.4 SEC (25-37); SODIUM 133 mEq/L (136-147)
[2017-05-03 15:34] LABS: ANION GAP 9 MEQ/L (2-14)
[2017-05-03 15:35] LABS: TOTAL BILIRUBIN 0.3 mg/dL (0.0-1.0)
[2017-05-03 15:37] LABS: GFR ESTIMATE (CALCULATED) > 59 mL/min/
[2017-05-03 15:39] LABS: AMYLASE 17 IU/L (1-118)
[2017-05-03 15:40] LABS: GLUCOSE 361 mg/dL (70-99)
[2017-05-03 15:45] LABS: UREA NITROGEN (BUN) 6 mg/dL (9-23)
[2017-05-03 15:47] LABS: LIPASE 9 U/L (1.0-51.0)
[2017-05-03 15:51] LABS: ALKALINE PHOSPHATASE 72 IU/L (3-129)
[2017-05-03] MEDS ORDERED: OXYCODONE HCL10 MG PO (20:33)
[2017-05-03 21:05] LABS: ADD MIUA? NO; BILIRUBIN NEGATIVE; BLOOD NEGATIVE; COLOR YELLOW ((YELLOW)); GLUCOSE (STRIP) 150; KETONES NEGATIVE; LEUKOCYTES NEGATIVE; NITRITE NEGATIVE; PROTEIN (STRIP) 30; SPECIFIC GRAVITY 1.021 (1.000-1.030); UCUL ADDED? NO; UROBILINOGEN 0.2 MG/DL (0.2-1.0)
[2017-05-03 21:33] LABS: SERUM ETHYL ALCOHOL < 10 mg/dL
[2017-05-03 21:35] VITALS: BP 170/91
[2017-05-03 21:38] LABS: ADD MEDTOX COMMENT Y; AMPHETAMINE NEGATIVE (500 ng/mL); BARBITURATES NEGATIVE (200 ng/mL); BENZODIAZEPINES PRESUMPTIVE POSITIVE (150 ng/mL); COCAINE NEGATIVE (150 ng/mL); INTERNAL CONTROLS VALID? YES; METHADONE NEGATIVE (200 ng/mL); METHAMPHETAMINE NEGATIVE (500 ng/mL); OPIATES (MORPHINE) NEGATIVE (100 ng/mL); OXYCODONE PRESUMPTIVE POSITIVE (100 ng/mL); PHENCYCLIDINE NEGATIVE (25 ng/mL); PROPOXYPHENE NEGATIVE (300 ng/mL); THC CANNABINOIDS NEGATIVE (50 ng/mL); TRICYCLIC ANTIDEPRESSANTS NEGATIVE (300 ng/mL)
[2017-05-03 22:14] LABS: BENZODIAZEPINES, URINE SCREEN POSITIVE (200 ng/mL)
== END 2017-05-03 21:30 | disposition left against medical advice (07) ==
LOC: EME 14:44 → EDOF 21:08 → ENRESERV 21:11 → EDOF 21:30 → ENRESERV 21:32
PROVIDERS: Emergency Medicine; Nurse Practitioner Family
DX: R10.84 Generalized abdominal pain (principal); Z86.19 Personal history of other infectious and parasitic diseases; Z76.5 Malingerer [conscious simulation]; I25.10 Atherosclerotic heart disease of native coronary artery without angina pectoris; I25.2 Old myocardial infarction; Z95.5 Presence of coronary angioplasty implant and graft; I10 Essential (primary) hypertension; E78.5 Hyperlipidemia, unspecified; E11.65 Type 2 diabetes mellitus with hyperglycemia; E66.01 Morbid (severe) obesity due to excess calories; I48.91 Unspecified atrial fibrillation; J44.9 Chronic obstructive pulmonary disease, unspecified; F17.210 Nicotine dependence, cigarettes, uncomplicated; Z79.01 Long term (current) use of anticoagulants; F10.11 Alcohol abuse, in remission; F19.20 Other psychoactive substance dependence, uncomplicated; G47.33 Obstructive sleep apnea (adult) (pediatric); Z91.19 Patient's noncompliance with other medical treatment and regimen; F31.9 Bipolar disorder, unspecified; G40.909 Epilepsy, unspecified, not intractable, without status epilepticus; D72.828 Other elevated white blood cell count; Z91.041 Radiographic dye allergy status; Z91.013 Allergy to seafood
CPT/HCPCS: 74177; 80053; 81003; 82150; 83605; 83690; 84999; 85027; 85610; 85730; 93005; 99281; 99285; G0378; G0480; J1200; J1630; J2550; J3010; J7030

== ENCOUNTER 2017-06-20 05:40 | Emergency (ER) | payer OTHER ==
[~2017-06-20] VITALS: Ht 185.4 cm; Wt 110.4 kg
[2017-06-20 07:40] LABS: HEMATOCRIT 49.3 % (38.0-50.0); HEMOGLOBIN 18.5 G/DL (12.5-16.6); MCH 32.3 PG (29.0-34.0); MCHC 37.5 G/DL (30.0-36.0); MCV 86.2 FL (86-99); PLATELET COUNT 332 K/uL (156-360); RBC DIS.WIDTH-CV 12.4 % (11.8-14.6); RBC DIS.WIDTH-SD 38.8 % (39-53); RED BLOOD COUNT 5.72 M/uL (4.00-5.50); WHITE BLOOD COUNT 16.2 K/uL (4.1-10.2)
[2017-06-20 08:29] LABS: ALBUMIN 4.1 G/DL (3.2-4.8); CHLORIDE 73 MEQ/L (99-109); POTASSIUM 3.1 MEQ/L (3.7-5.4); SODIUM 124 MEQ/L (136-147); TOTAL BILIRUBIN 0.8 MG/DL (0.0-1.0)
[2017-06-20 08:45] LABS: ALKALINE PHOSPHATASE 76 IU/L (3-129); ALT (GPT) 20 IU/L (3-49); AST (GOT) 26 IU/L (2-34); CREATININE 1.2 MG/DL (0.6-1.3); GFR ESTIMATE (CALCULATED) > 59 mL/min/ (58.99-99999); GLUCOSE 519 mg/dL (70-99); LIPASE 15 U/L (1.0-51.0); UREA NITROGEN (BUN) 30 mg/dL (9-23)
[2017-06-20 09:15] LABS: BASE EXCESS 12.8 mEq/L (-3 to +3); BICARBONATE 37.6 mEq/L (22-26); CARBOXY HGB 6.8 % (0-5); COMMENTS - BLOOD GASES A+C+; DEVICE RA; METHEMOGLOBIN 1.2 % (0-1.5); PCO2 45 mm Hg (35-45); PO2 83 mm Hg (80-100); SITE RR; TOTAL RESP RATE 18 resp/min; pH 7.53 (7.35-7.45)
[2017-06-20 10:10] LABS: APPEARANCE CLEAR ((CLEAR)); BILIRUBIN NEGATIVE; BLOOD NEGATIVE; COLOR STRAW ((YELLOW)); GLUCOSE (STRIP) >=500; KETONES NEGATIVE; LEUKOCYTES NEGATIVE; NITRITE NEGATIVE; PROTEIN (STRIP) 30; UCUL ADDED? NO; UROBILINOGEN 0.2 MG/DL (0.2-1.0)
[2017-06-20] MEDS ORDERED: PERCOCET 5/31 TABLET PO (12:50)
[2017-06-20 14:04] VITALS: BP 142/93
== END 2017-06-20 14:05 | disposition home or self-care (01) ==
LOC: EME 05:40
PROVIDERS: Emergency Medicine
DX: E11.65 Type 2 diabetes mellitus with hyperglycemia (principal); R10.12 Left upper quadrant pain; I48.91 Unspecified atrial fibrillation; J44.9 Chronic obstructive pulmonary disease, unspecified; I10 Essential (primary) hypertension; K21.9 Gastro-esophageal reflux disease without esophagitis; E78.5 Hyperlipidemia, unspecified; I25.2 Old myocardial infarction; F41.9 Anxiety disorder, unspecified; F32.9 Major depressive disorder, single episode, unspecified; F31.9 Bipolar disorder, unspecified; Z90.49 Acquired absence of other specified parts of digestive tract; F17.200 Nicotine dependence, unspecified, uncomplicated; Z86.711 Personal history of pulmonary embolism; Z79.01 Long term (current) use of anticoagulants; Z79.84 Long term (current) use of oral hypoglycemic drugs; Z91.041 Radiographic dye allergy status; Z88.5 Allergy status to narcotic agent
CPT/HCPCS: 36600; 71046; 74176; 80053; 81003; 82803; 82948; 83690; 85027; 93005; 99281; 99285; J2405; J3010; J7030

== ENCOUNTER 2017-08-10 03:51 | Observation (INO) | payer OTHER ==
[~2017-08-10] VITALS: Ht 185.4 cm; Wt 113.8 kg
[2017-08-10 04:44] LABS: HEMATOCRIT 44.5 % (38.0-50.0); HEMOGLOBIN 16.1 G/DL (12.5-16.6); MCHC 36.2 G/DL (30.0-36.0); MCV 88.5 FL (86-99); PLATELET COUNT 306 K/uL (156-360); RBC DIS.WIDTH-CV 13.2 % (11.8-14.6); RBC DIS.WIDTH-SD 42.2 % (39-53); RED BLOOD COUNT 5.03 M/uL (4.00-5.50); WHITE BLOOD COUNT 15.8 K/uL (4.1-10.2)
[2017-08-10 04:52] LABS: ALBUMIN 3.7 g/dL (3.2-4.8); CHLORIDE 98 mEq/L (99-109); POTASSIUM 3.9 mEq/L (3.7-5.4); SODIUM 133 mEq/L (136-147)
[2017-08-10 04:54] LABS: TOTAL PROTEIN 7.2 g/dL (6.4-8.3)
[2017-08-10 04:56] LABS: TOTAL BILIRUBIN 0.2 mg/dL (0.0-1.0)
[2017-08-10 04:58] LABS: ALKALINE PHOSPHATASE 78 IU/L (3-129); CREATININE 0.8 mg/dL (0.6-1.3); GFR ESTIMATE (CALCULATED) > 59 mL/min/ (58.99-99999)
[2017-08-10 04:59] LABS: UREA NITROGEN (BUN) 6 mg/dL (9-23)
[2017-08-10 05:00] LABS: AST (GOT) 15 IU/L (2-34)
[2017-08-10 05:01] LABS: ALT (GPT) 20 IU/L (3-49)
[2017-08-10 05:04] LABS: TROP-I INTERPRETATION NEGATIVE; TROPONIN-I < 0.01 ng/mL (0.0-0.30)
[2017-08-10 05:06] LABS: GLUCOSE 451 mg/dL (70-99)
[2017-08-10 05:54] LABS: CARBON DIOXIDE (BICARBONATE) 29.2 MEQ/L (20-31)
[2017-08-10 06:01] LABS: MAGNESIUM 1.6 mg/dL (1.3-2.7)
[2017-08-10 06:06] LABS: PHOSPHORUS 3.4 mg/dL (2.5-4.9)
[2017-08-10 06:08] LABS: LIPASE 73 U/L (1.0-51.0)
[2017-08-10 09:02] LABS: INTER. NORMALIZED RATIO 0.9
[2017-08-10 09:27] VITALS: BP 120/92
[2017-08-10 11:28] LABS: TROP-I INTERPRETATION NEGATIVE; TROPONIN-I < 0.01 ng/mL (0.0-0.30)
[2017-08-10 12:11] VITALS: BP 136/77
[2017-08-10 15:44] VITALS: BP 144/87
[2017-08-10 17:01] LABS: TROP-I INTERPRETATION NEGATIVE; TROPONIN-I 0.01 ng/mL (0.0-0.30)
[2017-08-10 20:00] VITALS: BP 136/60
[2017-08-10 23:07] VITALS: BP 147/86
[2017-08-11 04:00] VITALS: BP 140/67
[2017-08-11 05:12] LABS: HEMATOCRIT 42.6 % (38.0-50.0); HEMOGLOBIN 15.2 G/DL (12.5-16.6); MCH 31.8 PG (29.0-34.0); MCHC 35.7 G/DL (30.0-36.0); MCV 89.1 FL (86-99); PLATELET COUNT 280 K/uL (156-360); RBC DIS.WIDTH-SD 42.5 % (39-53); RED BLOOD COUNT 4.78 M/uL (4.00-5.50); WHITE BLOOD COUNT 19.8 K/uL (4.1-10.2)
[2017-08-11 05:23] LABS: INTER. NORMALIZED RATIO 1.1
[2017-08-11 05:36] LABS: CHLORIDE 98 MEQ/L (99-109); CREATININE 0.5 MG/DL (0.6-1.3); GFR ESTIMATE (CALCULATED) > 59 mL/min/ (58.99-99999); GLUCOSE 226 mg/dL (70-99); POTASSIUM 4.4 MEQ/L (3.7-5.4); SODIUM 130 MEQ/L (136-147); UREA NITROGEN (BUN) 6 mg/dL (9-23)
[2017-08-11 07:27] VITALS: BP 128/66
[2017-08-11 19:45] VITALS: BP 130/70
[2017-08-11 23:03] VITALS: BP 138/67
[2017-08-12 03:35] VITALS: BP 138/67
[2017-08-12 05:29] LABS: INTER. NORMALIZED RATIO 1.3
[2017-08-12 09:09] VITALS: BP 144/75
[2017-08-12 11:40] VITALS: BP 148/85
[2017-08-12] MEDS ORDERED: PREDNISONE10 MG PO (11:54)
== END 2017-08-12 13:46 | disposition home or self-care (01) ==
LOC: EME 03:51 → EDOF 08:00 → 5WEST 08:00 → EDOF 08:00 → ENRESERV 08:01 → 5WEST 08:59 → ENPENDDIS 08-12 13:24 → 5WEST 08-12 13:46
PROVIDERS: Emergency Medicine; Hospitalist; Internal Medicine
DX: R10.9 Unspecified abdominal pain (principal); J44.1 Chronic obstructive pulmonary disease with (acute) exacerbation; R09.02 Hypoxemia; E87.1 Hypo-osmolality and hyponatremia; K86.1 Other chronic pancreatitis; E11.65 Type 2 diabetes mellitus with hyperglycemia; G89.29 Other chronic pain; I25.10 Atherosclerotic heart disease of native coronary artery without angina pectoris; Z86.711 Personal history of pulmonary embolism; E66.01 Morbid (severe) obesity due to excess calories; Z68.33 Body mass index [BMI] 33.0-33.9, adult; I10 Essential (primary) hypertension; E78.5 Hyperlipidemia, unspecified; F31.9 Bipolar disorder, unspecified; Z98.890 Other specified postprocedural states; Z86.19 Personal history of other infectious and parasitic diseases; G47.33 Obstructive sleep apnea (adult) (pediatric); Z90.49 Acquired absence of other specified parts of digestive tract; F17.200 Nicotine dependence, unspecified, uncomplicated; Z79.01 Long term (current) use of anticoagulants; Z79.84 Long term (current) use of oral hypoglycemic drugs; Z88.5 Allergy status to narcotic agent; Z91.041 Radiographic dye allergy status
CPT/HCPCS: 71045; 71046; 80048; 80053; 82010; 82803; 82948; 83690; 83735; 83880; 84100; 84484; 85027; 85610; 87502; 93005; 94640; 94640 76; 94799; 99202; G0378; J1170; J1650; J1815; J2405; J2765; J2920; J3010; J7030; J7512

== ENCOUNTER 2017-08-15 04:58 | Emergency (ER) | payer OTHER ==
[~2017-08-15] VITALS: Ht 185.4 cm; Wt 116.2 kg
[~2017-08-15 04:58] MED LIST changes: +PREDNISONE10 MG PO
[2017-08-15 05:42] LABS: HEMATOCRIT 44.9 % (38.0-50.0); HEMOGLOBIN 16.1 G/DL (12.5-16.6); MCH 31.7 PG (29.0-34.0); MCHC 35.9 G/DL (30.0-36.0); MCV 88.4 FL (86-99); PLATELET COUNT 325 K/uL (156-360); RBC DIS.WIDTH-CV 12.9 % (11.8-14.6); RBC DIS.WIDTH-SD 42.1 % (39-53); RED BLOOD COUNT 5.08 M/uL (4.00-5.50); WHITE BLOOD COUNT 13.8 K/uL (4.1-10.2)
[2017-08-15 05:51] LABS: ALBUMIN 3.7 g/dL (3.2-4.8); CHLORIDE 95 mEq/L (99-109); POTASSIUM 4.3 mEq/L (3.7-5.4); SODIUM 130 mEq/L (136-147)
[2017-08-15 05:53] LABS: TOTAL PROTEIN 6.9 g/dL (6.4-8.3)
[2017-08-15 05:55] LABS: TOTAL BILIRUBIN 0.3 mg/dL (0.0-1.0)
[2017-08-15 05:57] LABS: ALKALINE PHOSPHATASE 73 IU/L (3-129); GFR ESTIMATE (CALCULATED) > 59 mL/min/ (58.99-99999)
[2017-08-15 05:58] LABS: UREA NITROGEN (BUN) 9 mg/dL (9-23)
[2017-08-15 05:59] LABS: AST (GOT) 12 IU/L (2-34)
[2017-08-15 06:00] LABS: ALT (GPT) 14 IU/L (3-49); GLUCOSE 710 mg/dL (70-99); LIPASE 10 U/L (1.0-51.0)
[2017-08-15 06:15] LABS: APPEARANCE CLEAR ((CLEAR)); BILIRUBIN NEGATIVE; BLOOD NEGATIVE; COLOR COLORLESS ((YELLOW)); GLUCOSE (STRIP) >=500; KETONES NEGATIVE; LEUKOCYTES NEGATIVE; NITRITE NEGATIVE; PROTEIN (STRIP) NEGATIVE; SPECIFIC GRAVITY 1.029 (1.000-1.030); UCUL ADDED? NO; UROBILINOGEN 0.2 MG/DL (0.2-1.0)
[2017-08-15 07:52] LABS: PTT 26.8 SEC (25-37)
[2017-08-15] MEDS ORDERED: ZOFRAN ODT4 MG PO (10:33)
[2017-08-15] MEDS ORDERED: PHENERGAN25 MG PR (10:33)
[2017-08-15 11:39] VITALS: BP 163/102
== END 2017-08-15 11:40 | disposition home or self-care (01) ==
LOC: EME 04:58
PROVIDERS: Nurse Practitioner Family; Physician Assistant
DX: E11.65 Type 2 diabetes mellitus with hyperglycemia (principal); K86.1 Other chronic pancreatitis; K85.90 Acute pancreatitis without necrosis or infection, unspecified; J44.9 Chronic obstructive pulmonary disease, unspecified; F10.10 Alcohol abuse, uncomplicated; F11.20 Opioid dependence, uncomplicated; Z91.14 Patient's other noncompliance with medication regimen; K59.00 Constipation, unspecified; T40.605A Adverse effect of unspecified narcotics, initial encounter; F17.200 Nicotine dependence, unspecified, uncomplicated; E78.5 Hyperlipidemia, unspecified; F32.9 Major depressive disorder, single episode, unspecified; F41.9 Anxiety disorder, unspecified; I10 Essential (primary) hypertension; I25.2 Old myocardial infarction; I48.91 Unspecified atrial fibrillation; K21.9 Gastro-esophageal reflux disease without esophagitis; Z79.4 Long term (current) use of insulin; Z88.5 Allergy status to narcotic agent; Z90.49 Acquired absence of other specified parts of digestive tract; Z91.041 Radiographic dye allergy status; Z79.01 Long term (current) use of anticoagulants; Z79.84 Long term (current) use of oral hypoglycemic drugs; Z79.891 Long term (current) use of opiate analgesic
CPT/HCPCS: 71046; 74176; 80053; 81003; 82948; 83690; 85027; 85610; 85730; 94640; 99281; 99285; J1885; J2405; J3010; J7030

== ENCOUNTER 2017-09-01 06:58 | Day surgery (SDC) | payer OTHER ==
[~2017-09-01] VITALS: Ht 185.4 cm; Wt 113.0 kg
[~2017-09-01 06:58] MED LIST changes: +OXYMORPHONE HCL15 MG PO; +PHENERGAN25 MG PR
[2017-09-01 07:36] LABS: BASOPHIL (%) 0.7 % (0-1); BASOPHIL COUNT 0.1 K/uL (0-0.1); EOSINOPHIL (%) 4.7 % (0-5); EOSINOPHIL COUNT 0.5 K/uL (0-0.3); IMMATURE GRANULOCYTE (%) 0.2 % (0.0-0.7); LYMPHOCYTE (%) 32.2 % (15-42); LYMPHOCYTE COUNT 3.6 K/uL (1.0-2.8); MCH 31.3 PG (29.0-34.0); MCHC 35.6 G/DL (30.0-36.0); MCV 88.1 FL (86-99); MONOCYTE (%) 9.9 % (3-12); MONOCYTE COUNT 1.1 K/uL (0-0.8); NEUTROPHIL (%) 52.3 % (45-76); NEUTROPHIL COUNT 5.8 K/uL (1.8-6.4); PLATELET COUNT 303 K/uL (156-360); RBC DIS.WIDTH-SD 42.1 % (39-53); RED BLOOD COUNT 5.11 M/uL (4.00-5.50); WHITE BLOOD COUNT 11.1 K/uL (4.1-10.2)
[2017-09-01 07:45] LABS: INTER. NORMALIZED RATIO 0.9
[2017-09-01 07:48] LABS: PTT 28.7 SEC (25-37)
[2017-09-01 08:01] VITALS: BP 127/77
[2017-09-01 08:01] LABS: ALBUMIN 3.8 G/DL (3.2-4.8); ALKALINE PHOSPHATASE 70 IU/L (3-129); ALT (GPT) 18 IU/L (3-49); AST (GOT) 22 IU/L (2-34); CHLORIDE 98 MEQ/L (99-109); CREATININE 0.7 MG/DL (0.6-1.3); GFR ESTIMATE (CALCULATED) > 59 mL/min/ (58.99-99999); GLUCOSE 380 mg/dL (70-99); POTASSIUM 4.5 MEQ/L (3.7-5.4); SODIUM 132 MEQ/L (136-147); TOTAL BILIRUBIN 0.3 MG/DL (0.0-1.0); TOTAL PROTEIN 7.2 G/DL (6.4-8.3); UREA NITROGEN (BUN) 13 mg/dL (9-23)
[2017-09-01] MEDS ORDERED: MOTRIN600 MG PO (10:05)
[2017-09-01 11:49] VITALS: BP 126/81
== END 2017-09-01 12:45 | disposition home or self-care (01) ==
LOC: SDC 06:58
PROVIDERS: Thoracic Surgery (Cardiothoracic Vascular Surgery)
PROC: 0V950ZZ Drainage of Scrotum, Open Approach (ICD-10-PCS; principal; 2017-09-01)
DX: N49.2 Inflammatory disorders of scrotum (principal); I10 Essential (primary) hypertension; E78.5 Hyperlipidemia, unspecified; E11.9 Type 2 diabetes mellitus without complications; E66.01 Morbid (severe) obesity due to excess calories; Z68.33 Body mass index [BMI] 33.0-33.9, adult; I48.0 Paroxysmal atrial fibrillation; I25.10 Atherosclerotic heart disease of native coronary artery without angina pectoris; G40.909 Epilepsy, unspecified, not intractable, without status epilepticus; F17.210 Nicotine dependence, cigarettes, uncomplicated; Z79.01 Long term (current) use of anticoagulants; Z79.4 Long term (current) use of insulin; Z95.5 Presence of coronary angioplasty implant and graft
CPT/HCPCS: 80053; 82948; 85025; 85610; 85730; 87070; 87075; 87205; 87641; 88305; J0330; J0690; J1170; J1885; J2250

== ENCOUNTER 2017-09-05 04:04 | Emergency (ER) | payer OTHER ==
[~2017-09-05] VITALS: Ht 185.4 cm; Wt 115.1 kg
[~2017-09-05 04:04] MED LIST changes: +MOTRIN600 MG PO
[2017-09-05 04:51] LABS: HEMATOCRIT 43.6 % (38.0-50.0); HEMOGLOBIN 15.6 G/DL (12.5-16.6); MCH 31.6 PG (29.0-34.0); MCHC 35.8 G/DL (30.0-36.0); MCV 88.4 FL (86-99); PLATELET COUNT 314 K/uL (156-360); RBC DIS.WIDTH-CV 12.9 % (11.8-14.6); RBC DIS.WIDTH-SD 41.7 % (39-53); RED BLOOD COUNT 4.93 M/uL (4.00-5.50); WHITE BLOOD COUNT 14.7 K/uL (4.1-10.2)
[2017-09-05 05:03] LABS: ALBUMIN 3.7 g/dL (3.2-4.8); CHLORIDE 100 mEq/L (99-109); POTASSIUM 3.9 mEq/L (3.7-5.4); SODIUM 134 mEq/L (136-147)
[2017-09-05 05:05] LABS: GLUCOSE 336 mg/dL (70-99); TOTAL PROTEIN 6.4 g/dL (6.4-8.3)
[2017-09-05 05:07] LABS: TOTAL BILIRUBIN 0.4 mg/dL (0.0-1.0)
[2017-09-05 05:09] LABS: ALKALINE PHOSPHATASE 74 IU/L (3-129); CREATININE 0.7 mg/dL (0.6-1.3); GFR ESTIMATE (CALCULATED) > 59 mL/min/ (58.99-99999)
[2017-09-05 05:10] LABS: AST (GOT) 11 IU/L (2-34); UREA NITROGEN (BUN) 8 mg/dL (9-23)
[2017-09-05 05:12] LABS: ALT (GPT) 18 IU/L (3-49)
[2017-09-05 10:49] VITALS: BP 156/106
== END 2017-09-05 10:53 | disposition home or self-care (01) ==
LOC: EME 04:04
PROVIDERS: Physician Assistant
DX: N49.2 Inflammatory disorders of scrotum (principal); Z98.890 Other specified postprocedural states; D72.829 Elevated white blood cell count, unspecified; E11.65 Type 2 diabetes mellitus with hyperglycemia; I10 Essential (primary) hypertension; J44.9 Chronic obstructive pulmonary disease, unspecified; E78.5 Hyperlipidemia, unspecified; K21.9 Gastro-esophageal reflux disease without esophagitis; I25.2 Old myocardial infarction; F41.9 Anxiety disorder, unspecified; F32.9 Major depressive disorder, single episode, unspecified; F17.200 Nicotine dependence, unspecified, uncomplicated; Z79.84 Long term (current) use of oral hypoglycemic drugs; Z79.01 Long term (current) use of anticoagulants; Z86.73 Personal history of transient ischemic attack (TIA), and cerebral infarction without residual deficits; Z86.711 Personal history of pulmonary embolism; Z95.9 Presence of cardiac and vascular implant and graft, unspecified; Z85.9 Personal history of malignant neoplasm, unspecified; Z87.19 Personal history of other diseases of the digestive system; Z90.49 Acquired absence of other specified parts of digestive tract; Z79.4 Long term (current) use of insulin; Z91.013 Allergy to seafood; Z91.041 Radiographic dye allergy status; Z88.5 Allergy status to narcotic agent
CPT/HCPCS: 80053; 82948; 83605; 85027; 87040; 99281; 99285; J0696; J3010; J7030; J7050

== ENCOUNTER 2017-09-11 04:47 | Emergency (ER) | payer OTHER ==
[~2017-09-11] VITALS: Ht 185.4 cm; Wt 118.8 kg
[2017-09-11 06:42] LABS: BASOPHIL (%) 0.8 % (0-1); BASOPHIL COUNT 0.1 K/uL (0-0.1); EOSINOPHIL (%) 2.8 % (0-5); EOSINOPHIL COUNT 0.4 K/uL (0-0.3); HEMOGLOBIN 14.9 G/DL (12.5-16.6); IMMATURE GRANULOCYTE (%) 0.4 % (0.0-0.7); LYMPHOCYTE (%) 25.5 % (15-42); LYMPHOCYTE COUNT 3.6 K/uL (1.0-2.8); MCH 31.6 PG (29.0-34.0); MCHC 35.5 G/DL (30.0-36.0); MONOCYTE (%) 7.5 % (3-12); MONOCYTE COUNT 1.1 K/uL (0-0.8); NEUTROPHIL COUNT 8.9 K/uL (1.8-6.4); PLATELET COUNT 340 K/uL (156-360); RBC DIS.WIDTH-CV 13.2 % (11.8-14.6); RED BLOOD COUNT 4.72 M/uL (4.00-5.50); WHITE BLOOD COUNT 14.1 K/uL (4.1-10.2)
[2017-09-11 07:19] LABS: ALBUMIN 3.7 G/DL (3.2-4.8); ALKALINE PHOSPHATASE 59 IU/L (3-129); ALT (GPT) 14 IU/L (3-49); CHLORIDE 99 MEQ/L (99-109); CREATININE 0.6 MG/DL (0.6-1.3); GFR ESTIMATE (CALCULATED) > 59 mL/min/ (58.99-99999); GLUCOSE 328 mg/dL (70-99); SODIUM 133 MEQ/L (136-147); TOTAL BILIRUBIN 0.3 MG/DL (0.0-1.0); UREA NITROGEN (BUN) 12 mg/dL (9-23)
[2017-09-11 07:26] LABS: AST (GOT) 24 IU/L (2-34); POTASSIUM 4.7 MEQ/L (3.7-5.4)
[2017-09-11] MEDS ORDERED: MOTRIN800 MG PO (09:10)
[2017-09-11 10:26] VITALS: BP 123/74
== END 2017-09-11 10:26 | disposition home or self-care (01) ==
LOC: EME 04:47
PROVIDERS: Emergency Medicine
DX: N49.2 Inflammatory disorders of scrotum (principal); Z98.890 Other specified postprocedural states; K76.0 Fatty (change of) liver, not elsewhere classified; J44.9 Chronic obstructive pulmonary disease, unspecified; K21.9 Gastro-esophageal reflux disease without esophagitis; I10 Essential (primary) hypertension; E11.9 Type 2 diabetes mellitus without complications; E78.5 Hyperlipidemia, unspecified; I25.2 Old myocardial infarction; F32.9 Major depressive disorder, single episode, unspecified; F41.9 Anxiety disorder, unspecified; F31.9 Bipolar disorder, unspecified; F17.200 Nicotine dependence, unspecified, uncomplicated; Z86.711 Personal history of pulmonary embolism; Z86.73 Personal history of transient ischemic attack (TIA), and cerebral infarction without residual deficits; Z90.49 Acquired absence of other specified parts of digestive tract; Z79.01 Long term (current) use of anticoagulants; Z79.4 Long term (current) use of insulin; Z91.041 Radiographic dye allergy status; Z88.5 Allergy status to narcotic agent
CPT/HCPCS: 74177; 80053; 83605; 85025; 99281; 99285; J1200; J1885; J2405; J2930; J7030

== ENCOUNTER 2017-09-18 04:46 | Emergency (ER) | payer OTHER ==
[~2017-09-18] VITALS: Ht 185.4 cm; Wt 114.0 kg
[~2017-09-18 04:46] MED LIST changes: +MOTRIN800 MG PO
[2017-09-18 06:15] LABS: BASOPHIL (%) 0.8 % (0-1); BASOPHIL COUNT 0.1 K/uL (0-0.1); EOSINOPHIL (%) 3.2 % (0-5); EOSINOPHIL COUNT 0.4 K/uL (0-0.3); HEMATOCRIT 40.8 % (38.0-50.0); HEMOGLOBIN 14.4 G/DL (12.5-16.6); IMMATURE GRANULOCYTE (%) 0.4 % (0.0-0.7); LYMPHOCYTE (%) 32.4 % (15-42); LYMPHOCYTE COUNT 3.9 K/uL (1.0-2.8); MCH 31.8 PG (29.0-34.0); MCHC 35.3 G/DL (30.0-36.0); MCV 90.1 FL (86-99); MONOCYTE (%) 8.3 % (3-12); NEUTROPHIL (%) 54.9 % (45-76); NEUTROPHIL COUNT 6.6 K/uL (1.8-6.4); PLATELET COUNT 301 K/uL (156-360); RBC DIS.WIDTH-CV 13.4 % (11.8-14.6); RBC DIS.WIDTH-SD 43.7 % (39-53); RED BLOOD COUNT 4.53 M/uL (4.00-5.50)
[2017-09-18 06:20] LABS: ALBUMIN 3.7 g/dL (3.2-4.8)
[2017-09-18 06:21] LABS: CHLORIDE 102 mEq/L (99-109); POTASSIUM 4.2 mEq/L (3.7-5.4); SODIUM 134 mEq/L (136-147)
[2017-09-18 06:23] LABS: GLUCOSE 280 mg/dL (70-99)
[2017-09-18 06:25] LABS: TOTAL BILIRUBIN 0.2 mg/dL (0.0-1.0)
[2017-09-18 06:26] LABS: ALKALINE PHOSPHATASE 61 IU/L (3-129)
[2017-09-18 06:27] LABS: CREATININE 0.7 mg/dL (0.6-1.3); GFR ESTIMATE (CALCULATED) > 59 mL/min/ (58.99-99999)
[2017-09-18 06:28] LABS: AST (GOT) 9 IU/L (2-34); UREA NITROGEN (BUN) 11 mg/dL (9-23)
[2017-09-18 06:29] LABS: ALT (GPT) 13 IU/L (3-49)
[2017-09-18 06:53] LABS: APPEARANCE CLEAR ((CLEAR)); BILIRUBIN NEGATIVE; BLOOD LARGE; COLOR YELLOW ((YELLOW)); GLUCOSE (STRIP) >=500; KETONES NEGATIVE; LEUKOCYTES NEGATIVE; NITRITE NEGATIVE; PROTEIN (STRIP) 30; SPECIFIC GRAVITY 1.025 (1.000-1.030); UROBILINOGEN 0.2 MG/DL (0.2-1.0)
[2017-09-18 06:57] LABS: BACTERIA NONE SEEN /HPF; EPITHELIAL CELLS RARE /HPF; MUCUS TRACE /LPF; RED BLOOD CELLS TNTC /HPF (0-5); UCUL ADDED? YES; WHITE BLOOD CELLS 0-5 /HPF (0-5)
[2017-09-18 08:16] LABS: LIPASE 10 U/L (1.0-51.0)
[2017-09-18 10:48] VITALS: BP 146/102
== END 2017-09-18 10:51 | disposition left against medical advice (07) ==
LOC: EME → EDBD 04:46 → EME 10:51
PROVIDERS: Emergency Medicine
DX: L02.214 Cutaneous abscess of groin (principal); N49.2 Inflammatory disorders of scrotum; Z53.20 Procedure and treatment not carried out because of patient's decision for unspecified reasons; E11.9 Type 2 diabetes mellitus without complications; E78.5 Hyperlipidemia, unspecified; I10 Essential (primary) hypertension; J44.9 Chronic obstructive pulmonary disease, unspecified; F32.9 Major depressive disorder, single episode, unspecified; F10.10 Alcohol abuse, uncomplicated; F17.200 Nicotine dependence, unspecified, uncomplicated; F41.9 Anxiety disorder, unspecified; I25.2 Old myocardial infarction; K21.9 Gastro-esophageal reflux disease without esophagitis; Z86.73 Personal history of transient ischemic attack (TIA), and cerebral infarction without residual deficits; Z88.5 Allergy status to narcotic agent; Z95.5 Presence of coronary angioplasty implant and graft; Z79.01 Long term (current) use of anticoagulants; Z79.891 Long term (current) use of opiate analgesic; Z79.84 Long term (current) use of oral hypoglycemic drugs
CPT/HCPCS: 80053; 81003; 83605; 83690; 85025; 85610; 87040; 87086; 99281; 99285; J2405

== ENCOUNTER 2017-10-07 02:23 | Emergency (ER) | payer OTHER ==
[~2017-10-07] VITALS: Ht 185.4 cm; Wt 118.7 kg
[2017-10-07 02:54] LABS: HEMOGLOBIN 15.6 G/DL (12.5-16.6); MCH 31.9 PG (29.0-34.0); MCHC 36.3 G/DL (30.0-36.0); MCV 87.9 FL (86-99); PLATELET COUNT 293 K/uL (156-360); RBC DIS.WIDTH-CV 13.1 % (11.8-14.6); RBC DIS.WIDTH-SD 42.4 % (39-53); RED BLOOD COUNT 4.89 M/uL (4.00-5.50); WHITE BLOOD COUNT 14.5 K/uL (4.1-10.2)
[2017-10-07 03:05] LABS: CHLORIDE 97 mEq/L (99-109); POTASSIUM 3.8 mEq/L (3.7-5.4); SODIUM 132 mEq/L (136-147)
[2017-10-07 03:07] LABS: GLUCOSE 362 mg/dL (70-99)
[2017-10-07 03:11] LABS: CREATININE 0.8 mg/dL (0.6-1.3); GFR ESTIMATE (CALCULATED) > 59 mL/min/ (58.99-99999)
[2017-10-07 03:12] LABS: UREA NITROGEN (BUN) 9 mg/dL (9-23)
[2017-10-07 03:14] LABS: LIPASE 10 U/L (1.0-51.0)
[2017-10-07 03:29] LABS: TROP-I INTERPRETATION NEGATIVE; TROPONIN-I < 0.01 ng/mL (0.0-0.30)
[2017-10-07 05:37] LABS: TROP-I INTERPRETATION NEGATIVE; TROPONIN-I < 0.01 ng/mL (0.0-0.30)
[2017-10-07] MEDS ORDERED: PEPCID20 MG PO (06:52)
[2017-10-07 07:19] VITALS: BP 148/81
== END 2017-10-07 07:19 | disposition home or self-care (01) ==
LOC: EME 02:23
PROVIDERS: Emergency Medicine
DX: R07.9 Chest pain, unspecified (principal); R10.13 Epigastric pain; G89.29 Other chronic pain; K85.90 Acute pancreatitis without necrosis or infection, unspecified; E11.65 Type 2 diabetes mellitus with hyperglycemia; I10 Essential (primary) hypertension; I25.2 Old myocardial infarction; K21.9 Gastro-esophageal reflux disease without esophagitis; J44.9 Chronic obstructive pulmonary disease, unspecified; F41.9 Anxiety disorder, unspecified; F32.9 Major depressive disorder, single episode, unspecified; E78.5 Hyperlipidemia, unspecified; Z86.73 Personal history of transient ischemic attack (TIA), and cerebral infarction without residual deficits; F10.10 Alcohol abuse, uncomplicated; F17.200 Nicotine dependence, unspecified, uncomplicated; Z88.5 Allergy status to narcotic agent; Z95.5 Presence of coronary angioplasty implant and graft; Z79.01 Long term (current) use of anticoagulants; Z79.891 Long term (current) use of opiate analgesic; Z79.4 Long term (current) use of insulin; Z91.041 Radiographic dye allergy status; Z99.81 Dependence on supplemental oxygen
CPT/HCPCS: 71046; 74176; 80048; 83690; 84484; 85027; 93005; 99281; 99285; J2405; J3010; J7030

== ENCOUNTER 2017-10-18 21:37 | Observation (INO) | payer OTHER ==
[~2017-10-18] VITALS: Ht 185.4 cm; Wt 115.0 kg
[~2017-10-18 21:37] MED LIST changes: +PEPCID20 MG PO
[2017-10-18 22:38] LABS: HEMATOCRIT 44.1 % (38.0-50.0); HEMOGLOBIN 15.9 G/DL (12.5-16.6); MCH 31.9 PG (29.0-34.0); MCHC 36.1 G/DL (30.0-36.0); MCV 88.4 FL (86-99); PLATELET COUNT 268 K/uL (156-360); RBC DIS.WIDTH-CV 13.3 % (11.8-14.6); RBC DIS.WIDTH-SD 43.3 % (39-53); RED BLOOD COUNT 4.99 M/uL (4.00-5.50); WHITE BLOOD COUNT 13.2 K/uL (4.1-10.2)
[2017-10-18 22:47] LABS: CHLORIDE 100 mEq/L (99-109); POTASSIUM 3.7 mEq/L (3.7-5.4); SODIUM 136 mEq/L (136-147)
[2017-10-18 22:49] LABS: GLUCOSE 331 mg/dL (70-99)
[2017-10-18 22:50] LABS: TOTAL PROTEIN 6.9 g/dL (6.4-8.3)
[2017-10-18 22:51] LABS: TOTAL BILIRUBIN 0.4 mg/dL (0.0-1.0)
[2017-10-18 22:53] LABS: ALKALINE PHOSPHATASE 59 IU/L (3-129); CREATININE 0.8 mg/dL (0.6-1.3); GFR ESTIMATE (CALCULATED) > 59 mL/min/ (58.99-99999)
[2017-10-18 22:54] LABS: UREA NITROGEN (BUN) 7 mg/dL (9-23)
[2017-10-18 22:55] LABS: AST (GOT) 10 IU/L (2-34)
[2017-10-18 22:56] LABS: ALT (GPT) 16 IU/L (3-49); LIPASE 5 U/L (1.0-51.0)
[2017-10-19 00:21] LABS: TROP-I INTERPRETATION NEGATIVE; TROPONIN-I < 0.01 ng/mL (0.0-0.30)
[2017-10-19] MEDS ORDERED: ZOLOFT100 MG PO (04:27)
[2017-10-19] MEDS ORDERED: XANAX0.5 MG PO (04:28)
[2017-10-19 05:17] VITALS: BP 165/83
[2017-10-19 07:30] VITALS: BP 124/68
[2017-10-19 11:26] VITALS: BP 134/63
[2017-10-19 12:45] LABS: TROP-I INTERPRETATION NEGATIVE; TROPONIN-I < 0.01 ng/mL (0.0-0.30)
[2017-10-19] MEDS ORDERED: NOVOLOG MI100 UNIT/3 SC (14:28)
[2017-10-19 15:37] VITALS: BP 124/67
[2017-10-19 19:16] VITALS: BP 139/77
[2017-10-19 23:28] VITALS: BP 162/75
[2017-10-20 04:19] VITALS: BP 114/60
[2017-10-20 06:05] LABS: MCH 31.1 PG (29.0-34.0); MCV 91.3 FL (86-99); PLATELET COUNT 210 K/uL (156-360); RBC DIS.WIDTH-CV 13.4 % (11.8-14.6); RBC DIS.WIDTH-SD 45.5 % (39-53); RED BLOOD COUNT 4.38 M/uL (4.00-5.50); WHITE BLOOD COUNT 10.7 K/uL (4.1-10.2)
[2017-10-20 06:09] LABS: HEMOGLOBIN 13.6 G/DL (12.5-16.6); INTER. NORMALIZED RATIO 1.1
[2017-10-20 06:27] LABS: CHLORIDE 107 MEQ/L (99-109); CREATININE 0.6 MG/DL (0.6-1.3); GFR ESTIMATE (CALCULATED) > 59 mL/min/ (58.99-99999); GLUCOSE 226 mg/dL (70-99); POTASSIUM 3.6 MEQ/L (3.7-5.4); SODIUM 138 MEQ/L (136-147); UREA NITROGEN (BUN) 9 mg/dL (9-23)
[2017-10-20 08:10] VITALS: BP 149/79
[2017-10-20 12:24] LABS: HEMOGLOBIN A1c (GLYCOHEMOGLOB) 9.5 % (Below 5.7)
[2017-10-20 14:46] LABS: D-DIMER ELISA < 150.00 ng/mLDDU (<230)
[2017-10-20 17:00] VITALS: BP 164/81
[2017-10-20 18:31] VITALS: BP 147/70
[2017-10-20 23:52] VITALS: BP 156/76
[2017-10-21 04:34] VITALS: BP 131/78
[2017-10-21 06:10] LABS: INTER. NORMALIZED RATIO 1.3
[2017-10-21 07:44] VITALS: BP 115/58
[2017-10-21 08:39] LABS: HEMATOCRIT 45.2 % (38.0-50.0); HEMOGLOBIN 15.3 G/DL (12.5-16.6); MCHC 33.8 G/DL (30.0-36.0); MCV 91.7 FL (86-99); PLATELET COUNT 255 K/uL (156-360); RBC DIS.WIDTH-CV 13.4 % (11.8-14.6); RBC DIS.WIDTH-SD 45.5 % (39-53); RED BLOOD COUNT 4.93 M/uL (4.00-5.50); WHITE BLOOD COUNT 18.7 K/uL (4.1-10.2)
[2017-10-21 08:52] LABS: CHLORIDE 107 MEQ/L (99-109); CREATININE 0.6 MG/DL (0.6-1.3); GFR ESTIMATE (CALCULATED) > 59 mL/min/ (58.99-99999); GLUCOSE 138 mg/dL (70-99); SODIUM 139 MEQ/L (136-147); UREA NITROGEN (BUN) 9 mg/dL (9-23)
[2017-10-21 11:42] VITALS: BP 152/86
[2017-10-21] MEDS ORDERED: LOVENOX120 MG/0.8 SC (14:31)
[2017-10-21] MEDS ORDERED: POLYETHYLENE GL17 GM PO (14:34)
[2017-10-21] MEDS ORDERED: OXYCODONE HCL5 MG PO (14:36)
== END 2017-10-21 15:50 | disposition home or self-care (01) ==
LOC: EME 21:37 → EDOF 10-19 03:48 → 4SOUTH 10-19 03:48 → ENRESERV 10-19 03:49 → 4SOUTH 10-19 05:05
PROVIDERS: Hospitalist; Internal Medicine; Nurse Practitioner Adult Health; Physician Assistant; Physician Assistant Medical
DX: I16.0 Hypertensive urgency (principal); I10 Essential (primary) hypertension; K86.1 Other chronic pancreatitis; D72.829 Elevated white blood cell count, unspecified; I25.10 Atherosclerotic heart disease of native coronary artery without angina pectoris; E78.5 Hyperlipidemia, unspecified; I48.91 Unspecified atrial fibrillation; Z86.718 Personal history of other venous thrombosis and embolism; Z86.711 Personal history of pulmonary embolism; J44.9 Chronic obstructive pulmonary disease, unspecified; R09.02 Hypoxemia; Z79.01 Long term (current) use of anticoagulants; K21.9 Gastro-esophageal reflux disease without esophagitis; F17.210 Nicotine dependence, cigarettes, uncomplicated; G47.33 Obstructive sleep apnea (adult) (pediatric); I25.2 Old myocardial infarction; Z95.5 Presence of coronary angioplasty implant and graft; E11.65 Type 2 diabetes mellitus with hyperglycemia; Z79.4 Long term (current) use of insulin; E66.01 Morbid (severe) obesity due to excess calories; G89.29 Other chronic pain; F10.11 Alcohol abuse, in remission; F19.21 Other psychoactive substance dependence, in remission; Z91.19 Patient's noncompliance with other medical treatment and regimen; F31.9 Bipolar disorder, unspecified; G40.909 Epilepsy, unspecified, not intractable, without status epilepticus; Z98.890 Other specified postprocedural states; Z91.041 Radiographic dye allergy status; Z88.5 Allergy status to narcotic agent; Z91.013 Allergy to seafood
CPT/HCPCS: 70450; 71045; 80048; 80053; 81003; 82948; 83036; 83690; 84484; 85027; 85048; 85379; 85610; 93005; 99281; 99284; G0378; J1650; J1815; J1885; J2405; J2765; J3010; J7030

== ENCOUNTER 2017-11-19 23:35 | Emergency (ER) | payer OTHER ==
[~2017-11-19] VITALS: Ht 185.4 cm; Wt 116.8 kg
[~2017-11-19 23:35] MED LIST changes: +NOVOLOG MI100 UNIT/3 SC; +POLYETHYLENE GL17 GM PO; +XANAX0.5 MG PO
[2017-11-20 00:27] LABS: HEMATOCRIT 44.5 % (38.0-50.0); HEMOGLOBIN 16.1 G/DL (12.5-16.6); MCH 32.1 PG (29.0-34.0); MCHC 36.2 G/DL (30.0-36.0); MCV 88.6 FL (86-99); PLATELET COUNT 272 K/uL (156-360); RBC DIS.WIDTH-CV 13.2 % (11.8-14.6); RBC DIS.WIDTH-SD 42.4 % (39-53); RED BLOOD COUNT 5.02 M/uL (4.00-5.50); WHITE BLOOD COUNT 14.2 K/uL (4.1-10.2)
[2017-11-20 00:42] LABS: CHLORIDE 101 mEq/L (99-109); SODIUM 138 mEq/L (136-147)
[2017-11-20 00:43] LABS: GLUCOSE 235 mg/dL (70-99)
[2017-11-20 00:47] LABS: CREATININE 0.7 mg/dL (0.6-1.3); GFR ESTIMATE (CALCULATED) > 59 mL/min/ (58.99-99999)
[2017-11-20 00:48] LABS: UREA NITROGEN (BUN) 8 mg/dL (9-23)
[2017-11-20 00:50] LABS: LIPASE 20 U/L (1.0-51.0)
[2017-11-20 00:52] LABS: TROP-I INTERPRETATION NEGATIVE; TROPONIN-I < 0.01 ng/mL (0.0-0.30)
[2017-11-20 01:06] LABS: TOTAL PROTEIN 6.9 g/dL (6.4-8.3)
[2017-11-20 01:08] LABS: TOTAL BILIRUBIN 0.5 mg/dL (0.0-1.0)
[2017-11-20 01:09] LABS: ALKALINE PHOSPHATASE 55 IU/L (3-129)
[2017-11-20 01:12] LABS: ALT (GPT) 18 IU/L (3-49); AST (GOT) 14 IU/L (2-34); DIRECT BILIRUBIN 0.2 mg/dL (0.0-0.3)
[2017-11-20 05:28] VITALS: BP 155/99
== END 2017-11-20 05:28 | disposition home or self-care (01) ==
LOC: EME 23:35
DX: K85.90 Acute pancreatitis without necrosis or infection, unspecified (principal); K86.1 Other chronic pancreatitis; K86.81 Exocrine pancreatic insufficiency; E11.65 Type 2 diabetes mellitus with hyperglycemia; I10 Essential (primary) hypertension; G89.29 Other chronic pain; R11.2 Nausea with vomiting, unspecified; J44.9 Chronic obstructive pulmonary disease, unspecified; I25.2 Old myocardial infarction; R07.9 Chest pain, unspecified; K21.9 Gastro-esophageal reflux disease without esophagitis; E78.5 Hyperlipidemia, unspecified; Z79.01 Long term (current) use of anticoagulants; Z95.5 Presence of coronary angioplasty implant and graft; Z86.73 Personal history of transient ischemic attack (TIA), and cerebral infarction without residual deficits; Z88.5 Allergy status to narcotic agent; Z91.041 Radiographic dye allergy status; Z91.013 Allergy to seafood; F17.200 Nicotine dependence, unspecified, uncomplicated; Z79.84 Long term (current) use of oral hypoglycemic drugs
CPT/HCPCS: 71046; 80048; 80076; 83690; 84484; 85027; 93005; 93971; 99281; 99285; J2405; J2765; J3010; J7030

== ENCOUNTER 2017-11-27 03:12 | Emergency (ER) | payer OTHER ==
[~2017-11-27] VITALS: Ht 185.4 cm; Wt 120.2 kg
[2017-11-27] MEDS ORDERED: BACTROBAN CREAM15 GM TP (03:36)
[2017-11-27] MEDS ORDERED: CLEOCIN300 MG PO (03:36)
[2017-11-27 04:58] VITALS: BP 163/87
== END 2017-11-27 04:59 | disposition home or self-care (01) ==
LOC: EME 03:12
DX: L03.114 Cellulitis of left upper limb (principal); J44.9 Chronic obstructive pulmonary disease, unspecified; I10 Essential (primary) hypertension; E11.9 Type 2 diabetes mellitus without complications; K21.9 Gastro-esophageal reflux disease without esophagitis; E78.5 Hyperlipidemia, unspecified; I25.2 Old myocardial infarction; F41.9 Anxiety disorder, unspecified; F32.9 Major depressive disorder, single episode, unspecified; F31.9 Bipolar disorder, unspecified; F17.200 Nicotine dependence, unspecified, uncomplicated; Z79.01 Long term (current) use of anticoagulants; Z79.84 Long term (current) use of oral hypoglycemic drugs; Z79.891 Long term (current) use of opiate analgesic; Z99.81 Dependence on supplemental oxygen; Z95.9 Presence of cardiac and vascular implant and graft, unspecified; Z86.711 Personal history of pulmonary embolism; Z87.19 Personal history of other diseases of the digestive system; Z86.14 Personal history of Methicillin resistant Staphylococcus aureus infection; Z86.19 Personal history of other infectious and parasitic diseases; Z86.73 Personal history of transient ischemic attack (TIA), and cerebral infarction without residual deficits; Z85.9 Personal history of malignant neoplasm, unspecified; Z90.49 Acquired absence of other specified parts of digestive tract; Z91.013 Allergy to seafood; Z91.041 Radiographic dye allergy status; Z88.5 Allergy status to narcotic agent
CPT/HCPCS: 99281; 99283

== ENCOUNTER 2017-11-27 20:57 | Emergency (ER) | payer OTHER ==
[~2017-11-27] VITALS: Ht 185.4 cm; Wt 117.8 kg
[~2017-11-27 20:57] MED LIST changes: +BACTROBAN CREAM15 GM TP; +CLEOCIN300 MG PO
[2017-11-27 22:28] LABS: BASOPHIL (%) 0.8 % (0-1); BASOPHIL COUNT 0.1 K/uL (0-0.1); EOSINOPHIL (%) 3.2 % (0-5); EOSINOPHIL COUNT 0.4 K/uL (0-0.3); HEMATOCRIT 44.4 % (38.0-50.0); HEMOGLOBIN 15.8 G/DL (12.5-16.6); IMMATURE GRANULOCYTE (%) 0.3 % (0.0-0.7); LYMPHOCYTE (%) 21.9 % (15-42); LYMPHOCYTE COUNT 2.6 K/uL (1.0-2.8); MCHC 35.6 G/DL (30.0-36.0); MCV 89.9 FL (86-99); MONOCYTE (%) 6.2 % (3-12); MONOCYTE COUNT 0.7 K/uL (0-0.8); NEUTROPHIL (%) 67.6 % (45-76); PLATELET COUNT 216 K/uL (156-360); RBC DIS.WIDTH-SD 42.5 % (39-53); RED BLOOD COUNT 4.94 M/uL (4.00-5.50); WHITE BLOOD COUNT 11.7 K/uL (4.1-10.2)
[2017-11-27 22:38] LABS: ALBUMIN 3.9 g/dL (3.2-4.8); CHLORIDE 100 mEq/L (99-109); MAGNESIUM 1.9 mg/dL (1.3-2.7); POTASSIUM 4.1 mEq/L (3.7-5.4); SODIUM 138 mEq/L (136-147)
[2017-11-27 22:40] LABS: GLUCOSE 283 mg/dL (70-99)
[2017-11-27 22:42] LABS: TOTAL BILIRUBIN 0.6 mg/dL (0.0-1.0)
[2017-11-27 22:43] LABS: ALKALINE PHOSPHATASE 51 IU/L (3-129)
[2017-11-27 22:44] LABS: CREATININE 0.8 mg/dL (0.6-1.3); GFR ESTIMATE (CALCULATED) > 59 mL/min/ (58.99-99999)
[2017-11-27 22:45] LABS: AST (GOT) 28 IU/L (2-34); UREA NITROGEN (BUN) 7 mg/dL (9-23)
[2017-11-27 22:47] LABS: ALT (GPT) 25 IU/L (3-49)
[2017-11-27 22:52] LABS: INTER. NORMALIZED RATIO 1.9
[2017-11-27 22:55] LABS: PTT 36.9 SEC (25-37)
[2017-11-27 23:51] LABS: APPEARANCE CLEAR ((CLEAR)); BILIRUBIN NEGATIVE; BLOOD NEGATIVE; COLOR YELLOW ((YELLOW)); GLUCOSE (STRIP) >=500; KETONES NEGATIVE; LEUKOCYTES NEGATIVE; NITRITE NEGATIVE; PROTEIN (STRIP) 100; SPECIFIC GRAVITY 1.022 (1.000-1.030); UROBILINOGEN 0.2 MG/DL (0.2-1.0)
[2017-11-28 00:01] LABS: BACTERIA NONE SEEN /HPF; EPITHELIAL CELLS NONE SEEN /HPF; MUCUS TRACE /LPF; RED BLOOD CELLS 0-5 /HPF (0-5); UCUL ADDED? NO; WHITE BLOOD CELLS 0-5 /HPF (0-5)
[2017-11-28 04:08] VITALS: BP 177/95
== END 2017-11-28 04:09 | disposition home or self-care (01) ==
LOC: EME 20:57
PROVIDERS: Emergency Medicine
DX: L03.114 Cellulitis of left upper limb (principal); E11.65 Type 2 diabetes mellitus with hyperglycemia; Z79.84 Long term (current) use of oral hypoglycemic drugs; I10 Essential (primary) hypertension; G89.29 Other chronic pain; E78.5 Hyperlipidemia, unspecified; J44.9 Chronic obstructive pulmonary disease, unspecified; F32.9 Major depressive disorder, single episode, unspecified; F41.9 Anxiety disorder, unspecified; Z79.01 Long term (current) use of anticoagulants; I25.2 Old myocardial infarction; F17.200 Nicotine dependence, unspecified, uncomplicated; K21.9 Gastro-esophageal reflux disease without esophagitis; Z86.73 Personal history of transient ischemic attack (TIA), and cerebral infarction without residual deficits; Z86.711 Personal history of pulmonary embolism; Z88.5 Allergy status to narcotic agent
CPT/HCPCS: 73130; 80053; 81003; 83605; 83735; 85025; 85610; 85730; 87040; 99281; 99285; J2405; J2765; J3010; J3370; J7050

== ENCOUNTER 2017-12-05 03:38 | Observation (INO) | payer OTHER ==
[~2017-12-05] VITALS: Ht 185.4 cm; Wt 115.0 kg
[~2017-12-05 03:38] MED LIST changes: +COUMADIN3 MG PO; +OXYMORPHONE HCL10 M1 PO; -OXYMORPHONE HCL15 MG PO
[2017-12-05 04:32] LABS: BASOPHIL (%) 0.9 % (0-1); BASOPHIL COUNT 0.1 K/uL (0-0.1); EOSINOPHIL (%) 2.8 % (0-5); EOSINOPHIL COUNT 0.5 K/uL (0-0.3); HEMATOCRIT 45.1 % (38.0-50.0); HEMOGLOBIN 16.3 G/DL (12.5-16.6); IMMATURE GRANULOCYTE (%) 0.3 % (0.0-0.7); LYMPHOCYTE (%) 23.5 % (15-42); LYMPHOCYTE COUNT 3.8 K/uL (1.0-2.8); MCH 32.2 PG (29.0-34.0); MCHC 36.1 G/DL (30.0-36.0); MCV 89.1 FL (86-99); MONOCYTE (%) 6.1 % (3-12); NEUTROPHIL (%) 66.4 % (45-76); NEUTROPHIL COUNT 10.7 K/uL (1.8-6.4); RBC DIS.WIDTH-CV 13.2 % (11.8-14.6); RBC DIS.WIDTH-SD 43.5 % (39-53); RED BLOOD COUNT 5.06 M/uL (4.00-5.50); WHITE BLOOD COUNT 16.1 K/uL (4.1-10.2)
[2017-12-05 04:36] LABS: PLATELET COUNT 287 K/uL (156-360)
[2017-12-05 04:50] LABS: ALBUMIN 4.4 g/dL (3.2-4.8); CHLORIDE 99 mEq/L (99-109); POTASSIUM 4.1 mEq/L (3.7-5.4); SODIUM 135 mEq/L (136-147)
[2017-12-05 04:52] LABS: GLUCOSE 188 mg/dL (70-99)
[2017-12-05 04:53] LABS: TOTAL PROTEIN 7.4 g/dL (6.4-8.3)
[2017-12-05 04:54] LABS: TOTAL BILIRUBIN 0.3 mg/dL (0.0-1.0)
[2017-12-05 04:56] LABS: ALKALINE PHOSPHATASE 59 IU/L (3-129); CREATININE 0.8 mg/dL (0.6-1.3); GFR ESTIMATE (CALCULATED) > 59 mL/min/ (58.99-99999)
[2017-12-05 04:57] LABS: UREA NITROGEN (BUN) 12 mg/dL (9-23)
[2017-12-05 04:58] LABS: AST (GOT) 16 IU/L (2-34)
[2017-12-05 04:59] LABS: ALT (GPT) 17 IU/L (3-49); LIPASE 12 U/L (1.0-51.0)
[2017-12-05 08:35] VITALS: BP 141/71
[2017-12-05] MEDS ORDERED: OXYCODONE HCL20 M1 PO (12:45)
[2017-12-05] MEDS ORDERED: OXYCODONE HCL15 MG PO (12:45)
[2017-12-05 14:50] LABS: HEMATOCRIT 41.6 % (38.0-50.0); HEMOGLOBIN 14.4 G/DL (12.5-16.6); MCH 31.1 PG (29.0-34.0); MCHC 34.6 G/DL (30.0-36.0); MCV 89.8 FL (86-99); PLATELET COUNT 232 K/uL (156-360); RBC DIS.WIDTH-CV 13.2 % (11.8-14.6); RBC DIS.WIDTH-SD 43.6 % (39-53); RED BLOOD COUNT 4.63 M/uL (4.00-5.50); WHITE BLOOD COUNT 10.8 K/uL (4.1-10.2)
[2017-12-05] MEDS ORDERED: KEFLEX500 MG PO (15:08)
[2017-12-05 16:12] VITALS: BP 138/87
[2017-12-05 19:00] VITALS: BP 144/73
[2017-12-05 21:59] LABS: INTER. NORMALIZED RATIO 1.9
[2017-12-05 23:57] VITALS: BP 161/87
[2017-12-06 01:59] LABS: C DIFF TOXIN NEGATIVE (NEGATIVE)
== END 2017-12-06 05:07 | disposition home or self-care (01) ==
LOC: EME 03:38 → EDOF 06:35 → ENRESERV 06:37 → 4SOUTH 08:20
PROVIDERS: Emergency Medicine; Hospitalist; Nurse Practitioner Family; Physician Assistant
DX: L03.114 Cellulitis of left upper limb (principal); E11.9 Type 2 diabetes mellitus without complications; I10 Essential (primary) hypertension; E66.01 Morbid (severe) obesity due to excess calories; Z68.33 Body mass index [BMI] 33.0-33.9, adult; K86.1 Other chronic pancreatitis; K21.9 Gastro-esophageal reflux disease without esophagitis; Z87.19 Personal history of other diseases of the digestive system; R10.9 Unspecified abdominal pain; I25.10 Atherosclerotic heart disease of native coronary artery without angina pectoris; I25.2 Old myocardial infarction; Z95.5 Presence of coronary angioplasty implant and graft; Z79.4 Long term (current) use of insulin; E78.5 Hyperlipidemia, unspecified; Z86.718 Personal history of other venous thrombosis and embolism; Z86.711 Personal history of pulmonary embolism; Z79.01 Long term (current) use of anticoagulants; J44.9 Chronic obstructive pulmonary disease, unspecified; G47.33 Obstructive sleep apnea (adult) (pediatric); Z91.19 Patient's noncompliance with other medical treatment and regimen; F31.9 Bipolar disorder, unspecified; Z98.890 Other specified postprocedural states; F17.200 Nicotine dependence, unspecified, uncomplicated; Z88.5 Allergy status to narcotic agent; Z91.041 Radiographic dye allergy status; Z91.013 Allergy to seafood
CPT/HCPCS: 80053; 81003; 82948; 83605; 83690; 85025; 85027; 85610; 87493; 99281; 99284; G0378; J1170; J2405; J2765; J3370; J7030; Q0169; Q0177; S0028

== ENCOUNTER 2017-12-31 02:59 | Emergency (ER) | payer OTHER ==
[~2017-12-31] VITALS: Ht 185.4 cm; Wt 116.7 kg
[~2017-12-31 02:59] MED LIST changes: +KEFLEX500 MG PO; +OXYCODONE HCL20 M1 PO
[2017-12-31 04:48] LABS: ALBUMIN 3.5 g/dL (3.2-4.8); CHLORIDE 98 mEq/L (99-109); POTASSIUM 3.8 mEq/L (3.7-5.4); SODIUM 135 mEq/L (136-147)
[2017-12-31 04:50] LABS: GLUCOSE 285 mg/dL (70-99); TOTAL PROTEIN 6.3 g/dL (6.4-8.3)
[2017-12-31 04:52] LABS: TOTAL BILIRUBIN 0.3 mg/dL (0.0-1.0)
[2017-12-31 04:54] LABS: ALKALINE PHOSPHATASE 58 IU/L (3-129); CREATININE 0.8 mg/dL (0.6-1.3); GFR ESTIMATE (CALCULATED) > 59 mL/min/ (58.99-99999)
[2017-12-31 04:55] LABS: UREA NITROGEN (BUN) 7 mg/dL (9-23)
[2017-12-31 04:56] LABS: AST (GOT) 18 IU/L (2-34)
[2017-12-31 04:57] LABS: ALT (GPT) 28 IU/L (3-49); LIPASE 21 U/L (1.0-51.0)
[2017-12-31 05:04] LABS: TROP-I INTERPRETATION NEGATIVE; TROPONIN-I < 0.01 ng/mL (0.0-0.30)
[2017-12-31 05:06] LABS: HEMATOCRIT 38.5 % (38.0-50.0); HEMOGLOBIN 14.2 G/DL (12.5-16.6); MCH 32.3 PG (29.0-34.0); MCHC 36.9 G/DL (30.0-36.0); MCV 87.7 FL (86-99); PLATELET COUNT 274 K/uL (156-360); RBC DIS.WIDTH-CV 13.1 % (11.8-14.6); RBC DIS.WIDTH-SD 41.1 % (39-53); RED BLOOD COUNT 4.39 M/uL (4.00-5.50); WHITE BLOOD COUNT 16.1 K/uL (4.1-10.2)
[2017-12-31 06:35] VITALS: BP 119/77
== END 2017-12-31 06:36 | disposition home or self-care (01) ==
LOC: EME 02:59
PROVIDERS: Emergency Medicine
DX: S00.83XA Contusion of other part of head, initial encounter (principal); R53.1 Weakness; G89.29 Other chronic pain; R73.9 Hyperglycemia, unspecified; W10.9XXA Fall (on) (from) unspecified stairs and steps, initial encounter; I10 Essential (primary) hypertension; E78.5 Hyperlipidemia, unspecified; K21.9 Gastro-esophageal reflux disease without esophagitis; F17.200 Nicotine dependence, unspecified, uncomplicated; Z88.5 Allergy status to narcotic agent; Z91.041 Radiographic dye allergy status
CPT/HCPCS: 70450; 71046; 80053; 83690; 84484; 85027; 93005; 99281; 99284

== ENCOUNTER 2018-01-01 18:05 | Emergency (ER) | payer OTHER ==
[~2018-01-01] VITALS: Ht 182.9 cm; Wt 116.3 kg
[2018-01-01 20:26] LABS: BASOPHIL (%) 0.7 % (0-1); BASOPHIL COUNT 0.1 K/uL (0-0.1); EOSINOPHIL (%) 2.5 % (0-5); EOSINOPHIL COUNT 0.3 K/uL (0-0.3); HEMATOCRIT 40.3 % (38.0-50.0); HEMOGLOBIN 14.7 G/DL (12.5-16.6); IMMATURE GRANULOCYTE (%) 0.3 % (0.0-0.7); LYMPHOCYTE (%) 16.2 % (15-42); MCH 31.7 PG (29.0-34.0); MCHC 36.5 G/DL (30.0-36.0); MCV 86.9 FL (86-99); MONOCYTE (%) 5.6 % (3-12); MONOCYTE COUNT 0.7 K/uL (0-0.8); NEUTROPHIL (%) 74.7 % (45-76); RBC DIS.WIDTH-CV 13.2 % (11.8-14.6); RBC DIS.WIDTH-SD 40.6 % (39-53); RED BLOOD COUNT 4.64 M/uL (4.00-5.50); WHITE BLOOD COUNT 12.1 K/uL (4.1-10.2)
[2018-01-01 20:30] LABS: CHLORIDE 104 mEq/L (99-109); SODIUM 136 mEq/L (136-147)
[2018-01-01 20:32] LABS: GLUCOSE 202 mg/dL (70-99)
[2018-01-01 20:36] LABS: CREATININE 0.7 mg/dL (0.6-1.3); GFR ESTIMATE (CALCULATED) > 59 mL/min/ (58.99-99999); UREA NITROGEN (BUN) 8 mg/dL (9-23)
[2018-01-01 20:38] LABS: POTASSIUM 4.8 mEq/L (3.7-5.4)
[2018-01-01 21:07] LABS: ANISOCYTOSIS NONE SEEN; PLAT.SUFFICIENCY ADEQUATE; PLATELET COUNT 204 K/uL (156-360)
[2018-01-01 21:25] VITALS: BP 165/93
[2018-01-02 00:04] LABS: APPEARANCE CLEAR ((CLEAR)); BILIRUBIN NEGATIVE; BLOOD NEGATIVE; COLOR STRAW ((YELLOW)); GLUCOSE (STRIP) 50; KETONES NEGATIVE; LEUKOCYTES NEGATIVE; NITRITE NEGATIVE; PROTEIN (STRIP) NEGATIVE; SPECIFIC GRAVITY 1.008 (1.000-1.030); UCUL ADDED? NO; UROBILINOGEN 0.2 MG/DL (0.2-1.0)
== END 2018-01-02 01:14 | disposition left against medical advice (07) ==
LOC: EME 18:05
PROVIDERS: Emergency Medicine
DX: R51 Headache (principal); R11.0 Nausea; R41.3 Other amnesia; R41.0 Disorientation, unspecified; Z91.81 History of falling; I10 Essential (primary) hypertension; E78.5 Hyperlipidemia, unspecified; E11.9 Type 2 diabetes mellitus without complications; Z79.84 Long term (current) use of oral hypoglycemic drugs; I25.2 Old myocardial infarction; Z95.5 Presence of coronary angioplasty implant and graft; Z86.73 Personal history of transient ischemic attack (TIA), and cerebral infarction without residual deficits; Z79.01 Long term (current) use of anticoagulants; F17.200 Nicotine dependence, unspecified, uncomplicated; Z53.20 Procedure and treatment not carried out because of patient's decision for unspecified reasons
CPT/HCPCS: 70450; 80048; 81003; 85025; J2405; J3010; J7030

== ENCOUNTER 2018-01-02 02:00 | Emergency (ER) | payer OTHER ==
[~2018-01-02] VITALS: Ht 182.9 cm; Wt 116.3 kg
[2018-01-02 02:05] VITALS: BP 168/92
[2018-01-02 03:24] LABS: HEMATOCRIT 37.5 % (38.0-50.0); HEMOGLOBIN 13.7 G/DL (12.5-16.6); MCH 31.9 PG (29.0-34.0); MCHC 36.5 G/DL (30.0-36.0); MCV 87.2 FL (86-99); RBC DIS.WIDTH-CV 13.2 % (11.8-14.6); RBC DIS.WIDTH-SD 41.5 % (39-53); WHITE BLOOD COUNT 11.4 K/uL (4.1-10.2)
[2018-01-02 03:26] LABS: PLATELET COUNT 270 K/uL (156-360)
[2018-01-02 03:45] LABS: CHLORIDE 103 mEq/L (99-109); POTASSIUM 4.2 mEq/L (3.7-5.4); SODIUM 138 mEq/L (136-147)
[2018-01-02 03:47] LABS: GLUCOSE 295 mg/dL (70-99)
[2018-01-02 03:50] LABS: SERUM ETHYL ALCOHOL < 10 mg/dL
[2018-01-02 03:51] LABS: CREATININE 0.8 mg/dL (0.6-1.3); GFR ESTIMATE (CALCULATED) > 59 mL/min/ (58.99-99999)
[2018-01-02 03:52] LABS: UREA NITROGEN (BUN) 7 mg/dL (9-23)
[2018-01-02 04:57] LABS: APPEARANCE CLEAR ((CLEAR)); BILIRUBIN NEGATIVE; BLOOD NEGATIVE; COLOR YELLOW ((YELLOW)); GLUCOSE (STRIP) >=500; KETONES NEGATIVE; LEUKOCYTES NEGATIVE; NITRITE NEGATIVE; PROTEIN (STRIP) 30; SPECIFIC GRAVITY 1.013 (1.000-1.030); UCUL ADDED? NO; UROBILINOGEN 0.2 MG/DL (0.2-1.0)
[2018-01-02 04:58] LABS: AMPHETAMINE NEGATIVE (500 ng/mL); BARBITURATES NEGATIVE (200 ng/mL); BENZODIAZEPINES PRESUMPTIVE POSITIVE (150 ng/mL); BUPRENORPHINE NEGATIVE (10 ng/mL); COCAINE NEGATIVE (150 ng/mL); METHADONE NEGATIVE (200 ng/mL); METHAMPHETAMINE NEGATIVE (500 ng/mL); OPIATES (MORPHINE) NEGATIVE (100 ng/mL); OXYCODONE PRESUMPTIVE POSITIVE (100 ng/mL); PHENCYCLIDINE NEGATIVE (25 ng/mL); PROPOXYPHENE NEGATIVE (300 ng/mL); THC CANNABINOIDS NEGATIVE (50 ng/mL); TRICYCLIC ANTIDEPRESSANTS NEGATIVE (300 ng/mL)
[2018-01-02 05:51] LABS: BENZODIAZEPINES, URINE SCREEN POSITIVE (200 ng/mL)
== END 2018-01-02 05:40 | disposition left against medical advice (07) ==
LOC: EME 02:00
PROVIDERS: Emergency Medicine
DX: R68.89 Other general symptoms and signs (principal); Z88.5 Allergy status to narcotic agent; Z91.041 Radiographic dye allergy status
CPT/HCPCS: 80048; 81003; 84999; 85027; 99281; 99284; G0480